=== PATIENT | female | born 1950 | race Caucasian/White ===

== ENCOUNTER 2017-11-03 18:05 | Inpatient (IN) | payer MEDICAID, OTHER ==
--- NOTE | 2017-11-03 18:56 | ED PDOC ---
Arrival/HPI - General Chief Complaint: Abdominal Pain Time Seen by Provider: 11/03/17 18:31 Historian: Patient - History of Present Illness Narrative History of Present Illness (Text): 11/03/17 18:53 75 year old female, whose history includes diabetes and hypertension, presents to the Emergency department complaining of left flank pain that began yesterday. Patient also complains of associated dysuria. Patient states that symptoms feel similar to a previous kidney stone. Patient denies any fever, chills, chest pain, shortness of breath, nausea, vomiting, diarrhea, neck pain, headache, dizziness, or any other complaints. PMD: Dr. Isa Saldana Time/Duration: 24 hours Symptom Onset: Gradual Symptom Course: Unchanged Context: Home Past Medical History - Provider Review Nursing Documentation Reviewed: Yes - Infectious Disease Hx of Infectious Diseases: None - Reproductive Menopause: Yes - Genitourinary/Gynecological Hx Urinary Tract Infection: Yes - Psychiatric Hx Substance Use: No - Anesthesia Hx Anesthesia: No Hx Anesthesia Reactions: No Hx Malignant Hyperthermia: No Family/Social History - Physician Review Nursing Documentation Reviewed: Yes Family/Social History: Unknown Family HX Smoking Status: Never Smoked Hx Alcohol Use: No Hx Substance Use: No Allergies/Home Meds Allergies/Adverse Reactions: Allergies No Known Allergies Allergy (Verified 11/03/17 18:09) Home Medications: Home Meds Medication Instructions Recorded Confirmed No Known Home Med 11/03/17 11/03/17 Review of Systems - Physician Review All systems were reviewed & negative as marked: Yes - Review of Systems Constitutional: absent: Fevers, Night Sweats Respiratory: absent: SOB Cardiovascular: absent: Chest Pain Gastrointestinal: absent: Diarrhea, Nausea, Vomiting Genitourinary Female: Dysuria Musculoskeletal: Other (left flank pain). absent: Neck Pain Neurological: absent: Headache, Dizziness Physical Exam Vital Signs Reviewed: Yes Vital Signs Temp Pulse Resp BP Pulse Ox 11/03/17 20:05 78 18 145/80 98 11/03/17 18:25 97.9 F 86 18 158/71 H 98 Temperature: Afebrile Blood Pressure: Hypertensive Pulse: Regular Respiratory Rate: Normal Appearance: Positive for: Well-Appearing, Non-Toxic, Comfortable Pain Distress: None Mental Status: Positive for: Alert and Oriented X 3 - Systems Exam Head: Present: Atraumatic, Normocephalic Pupils: Present: PERRL Extroacular Muscles: Present: EOMI Conjunctiva: Present: Normal Mouth: Present: Moist Mucous Membranes Neck: Present: Normal Range of Motion Respiratory/Chest: Present: Clear to Auscultation, Good Air Exchange. No: Respiratory Distress, Accessory Muscle Use Cardiovascular: Present: Regular Rate and Rhythm, Normal S1, S2. No: Murmurs Abdomen: Present: Normal Bowel Sounds. No: Tenderness, Distention, Peritoneal Signs Back: Present: Normal Inspection Upper Extremity: Present: Normal Inspection. No: Cyanosis, Edema Lower Extremity: Present: Normal Inspection. No: Edema Neurological: Present: GCS=15, CN II-XII Intact, Speech Normal Skin: Present: Warm, Dry, Normal Color. No: Rashes Psychiatric: Present: Alert, Oriented x 3, Normal Insight, Normal Concentration Medical Decision Making ED Course and Treatment: 11/03/17 19:09 Impression: 75 year old female presents to the Emergency department complaining of left flank pain. Differential Diagnosis included but are not limited to: kidney stone Plan: -- CT scan of abdomen and pelvis -- Blood culture, urine culture -- Urinalysis -- Labs -- Toradol, Morphine, Zofran, Sodium Chloride IV fluids -- Reassess and disposition Progress Notes: 11/03/17 20:50 Discussed case in detail with patient and family. Thus far, labs indicate possible pyelonephritis so IV antibiotics have been ordered. Still pending CT. 11/03/17 22:34 CT of abdomen/pelvis reviewed by radiologist, shows: IMPRESSION: 1. LEFT hydroureteronephrosis without CT evidence of obstructing calculus. DDX: obstructing radiolucent stone, recently passed ureteral calculus, ureteral stricture, infection, obstructing ureteral mass. Clinical correlation and follow up are recommended. 2. Incidental/non-acute findings are described above. - Lab Interpretations Lab Results: 11/03/17 19:45 11/03/17 19:45 Lab Results 11/03/17 20:10: Urine Color Yellow, Urine Appearance Sl cloudy, Urine pH 7.5, Ur Specific [place] 1.020, Urine Protein 100 H, Urine Glucose (UA) Negative, Urine Ketones Trace H, Urine Blood Moderate H, Urine Nitrate Positive H, Urine Bilirubin Negative, Urine Urobilinogen 1.0 H, Ur Leukocyte Esterase Moderate H, Urine RBC Tntc, Urine WBC Tntc, Ur Epithelial Cells 10 - 12, Urine Bacteria Many 11/03/17 19:45: Sodium 139, Chloride 103, Potassium 3.4 L, Carbon Dioxide 25, Anion Gap 14, BUN 22 H, Creatinine 0.7, Est GFR ( Amer) > 60, Est GFR ( Non-Af Amer) > 60, Random Glucose 145 H, Calcium 9.0, Total Bilirubin 0.9, AST 23, ALT 30, Alkaline Phosphatase 70, Total Protein 6.7, Albumin 3.6, Globulin 3.2, Albumin/Globulin Ratio 1.1 11/03/17 19:45: pO2 143 H, VBG pH 7.51 H, VBG pCO2 35.0 L, VBG HCO3 27.9, VBG Total CO2 29.0 H, VBG O2 Sat (Calc) 99.5 H, VBG Base Excess 4.9 H, VBG Potassium 3.2 L, Sodium 138.0, Chloride 105.0, Glucose 148 H, Lactate 1.3, FiO2 21.0, Venous Blood Potassium 3.2 L 11/03/17 19:45: PT 14.9 H, INR 1.30 H 11/03/17 19:45: WBC 13.9 H, RBC 3.55, Hgb 11.1 L, Hct 31.9 L, MCV 89.9, MCH 31.3 , MCHC 34.8, RDW 12.9, Plt Count 103 L, MPV 8.9, Gran % 91.0 H, Lymph % (Auto) 5.2 L, [place] % (Auto) 3.7, Eos % (Auto) 0.0 L, Baso % (Auto) 0.1, Gran # 12.64 H , Lymph # (Auto) 0.7 L, [place] # (Auto) 0.5, Eos # (Auto) 0.0, Baso # (Auto) 0.01 , Neutrophils % (Manual) 94 H, Band Neutrophils % 1, Lymphocytes % (Manual) 2 L , Atypical Lymphs % 3 H, Monocytes % (Manual) 0 L, Platelet Evaluation Low - RAD Interpretation Radiology Orders: 11/03/17 19:04 ABD & PELVIS W/O PO OR IV 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[employer]: Radiologist - Medication Orders Current Medication Orders: Sodium Chloride (Sodium Chloride 0.9%) 1,000 mls @ 100 mls/hr IV .Q10H GONZALEZ Last Admin: 11/03/17 20:04 Dose: 100 mls/hr eMAR Start Stop Document 11/03/17 20:04 SF (Rec: 11/03/17 20:04 SF [email or web address] Intravenous Solution Start Date 11/03/17 Start Time 20:04 Discontinued Medications Ceftriaxone Sodium (Rocephin 1 Gram Ivpb) 1 gm in 100 mls @ 200 mls/hr IVPB STAT STA PRN Reason: Protocol Stop: 11/03/17 21:08 Last Admin: 11/03/17 21:37 Dose: 200 mls/hr eMAR Start Stop Document 11/03/17 21:37 AD (Rec: 11/03/17 21:38 AD [email or web address] Intravenous Solution Start Date 11/03/17 Start Time 21:38 Sodium Chloride (Sodium Chloride 0.9%) 1,000 mls @ 999 mls/hr IV .Q1H1M STA Stop: 11/03/17 21:39 Last Admin: 11/03/17 21:38 Dose: 999 mls/hr eMAR Start Stop Document 11/03/17 21:38 AD (Rec: 11/03/17 21:38 AD [email or web address]) Intravenous Solution Start Date 11/03/17 Start Time 21:38 Ketorolac Tromethamine (Toradol) 15 mg IVP STAT STA Stop: 11/03/17 19:03 Last Admin: 11/03/17 20:03 Dose: 15 mg MAR Pain Assessment Document 11/03/17 20:03 SF (Rec: 11/03/17 20:04 SF [email or web address] Pain Reassessment Is this a pain reassessment? Yes Sleep Is patient sleeping during reassessment? No Pain Scale Used Pain Scale Used Numeric IVP Administration Document 11/03/17 20:03 SF (Rec: 11/03/17 20:04 SF [email or web address] Charges for Administration # of IVP Administrations 1 Morphine Sulfate (Morphine) 4 mg IVP STAT STA Stop: 11/03/17 19:03 Last Admin: 11/03/17 20:03 Dose: 4 mg MAR Pain Assessment Document 11/03/17 20:03 SF (Rec: 11/03/17 20:03 SF [email or web address] Pain Reassessment Is this a pain reassessment? Yes Sleep Is patient sleeping during reassessment? 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 - Scribe Statement The provider has reviewed the documentation as recorded by the Scribsuzy Lopez Provider Scribe Attestation: All medical record entries made by the Scribe were at my direction and personally dictated by me. I have reviewed the chart and agree that the record accurately reflects my personal performance of the history, physical exam, medical decision making, and the department course for this patient. I have also personally directed, reviewed, and agree with the discharge instructions and disposition. Disposition/Present on Arrival - Present on Arrival Any Indicators Present on Arrival: No History of DVT/PE: No History of Uncontrolled Diabetes: No Urinary Catheter: No History of Decub. Ulcer: No History Surgical Site Infection Following: None - Disposition Have Diagnosis and Disposition been Completed?: Yes Diagnosis: Pyelonephritis, Hydronephrosis Disposition: HOSPITALIZED Disposition Time: 23:03 Patient Plan: Admission Condition: GOOD Referrals: Isa Saldana MD [Primary Care Provider] - Follow up with primary Forms: [employer] (Azeri)
[2017-11-03] MEDS ORDERED: Morphine 4 mg/ml ISec IVP STA (19:02)
[2017-11-03] MEDS: Sodium Chloride 0.9% 1,000 ML IV SCH (20:04)
[2017-11-03 20:15] LABS: BASO # 0.01 K/mm3 (0.0-2.0); BASO % 0.1 % (0.0-3.0); GRAN # 12.64 (1.4-6.5); HEMOGLOBIN 11.1 g/dL (12.0-16.0); LYMPH # 0.7 (1.2-3.4); LYMPH % 5.2 % (22.0-35.0); MEAN CELL VOLUME 89.9 fl (80.0-105.0); MEAN CORPUSCULAR HEMOGLOBIN 31.3 pg (25.0-35.0); MEAN CORPUSCULAR HGB CONC 34.8 g/dl (31.0-37.0); MEAN PLATELET VOLUME 8.9 fl (7.0-11.0); MONO # 0.5 (0.1-0.6); MONO % 3.7 % (1.0-6.0); PLATELET COUNT 103 10^3/uL (120.0-450.0); RBC 3.55 10^6/uL (3.5-6.1); RED CELL DISTRIBUTION WIDTH 12.9 % (11.5-14.5); WHITE BLOOD COUNT 13.9 10^3/ul (4.5-11.0)
[2017-11-03 20:16] LABS: VENOUS BLOOD GAS BASE EXCESS 4.9 mmol/L (0.0-2.0); VENOUS BLOOD GAS PO2 143 mm/Hg (30-55); VENOUS BLOOD PH 7.51 (7.32-7.43)
[2017-11-03 20:28] LABS: INR 1.3 (0.93-1.08); PROTHROMBIN TIME 14.9 SECONDS (9.4-12.5)
[2017-11-03 20:31] LABS: ALB/GLOB RATIO 1.1 (1.1-1.8); ALBUMIN 3.6 g/dL (3.0-4.8); ALT/SGPT 30 U/L (7-56); AST/SGOT 23 U/L (14-36); BLOOD UREA NITROGEN 22 mg/dL (7-21); GFR AFRICAN-AMERICAN > 60; GFR NON-AFRICAN AMERICAN > 60
[2017-11-03 20:31] LABS: PH,URINE 7.5 (4.7-8.0); URINE BILIRUBIN NEGATIVE (NEGATIVE); URINE BLOOD MODERATE (NEGATIVE); URINE GLUCOSE (UA) NEGATIVE (NEGATIVE); URINE LEUKOCYTE ESTERASE MODERATE Leu/uL (NEGATIVE); URINE PROTEIN 100 mg/dL (<30 mg/dL)
[2017-11-03 20:33] LABS: URINE APPEARANCE SL CLOUDY (CLEAR); URINE COLOR YELLOW (YELLOW)
[2017-11-03] MEDS ORDERED: Sodium Chloride 0.9% 1,000 ML IV STA (20:39)
[2017-11-03] MEDS ORDERED: cefTRIAXone 1 gm 1 GM/100 ML BAG IVPB STA (20:39)
[2017-11-03 20:42] LABS: URINE BACTERIA MANY (NEG); URINE RBC TNTC /hpf (0-2); URINE WBC TNTC /hpf (0-6)
[2017-11-03 21:02] LABS: ATYPICAL LYMPHOCYTE 3 % (0.0-0.0); BAND 1 % (0-2); LYMPHOCYTE 2 % (22.0-35.0); NEUTROPHIL 94 % (50.0-70.0); PLATELET ESTIMATE LOW (NORMAL)
[2017-11-03 21:04] LABS: MONOCYTE 0 % (1.0-6.0)
--- NOTE | 2017-11-03 22:31 | CT ---
EXAM: CT Abdomen and Pelvis Without Intravenous Contrast CLINICAL HISTORY: 67 years old, female; Pain; Abdominal pain; Flank; Left; Additional info: Left flank pain TECHNIQUE: Axial computed tomography images of the abdomen and pelvis without intravenous contrast. All CT scans at this facility use one or more dose reduction techniques, viz.: automated exposure control; ma/kV adjustment per patient size (including targeted exams where dose is matched to indication; i.e. head); or iterative reconstruction technique. Coronal and sagittal reformatted images were created and reviewed. COMPARISON: No relevant prior studies available. FINDINGS: Limitations: Lack of intravenous contrast. Motion artifact - mild. Lower thorax: No acute findings. ABDOMEN: Liver: Fatty infiltration. Gallbladder and bile ducts: No calcified stones. No ductal dilation. Pancreas: Unremarkable. No ductal dilation. Spleen: No splenomegaly. Adrenals: No mass. Kidneys and ureters: Mild stranding about LEFT kidney. Probable RIGHT renal cyst. 1.2 cm calculus within LEFT kidney. Mild pelvocaliectasis of LEFT kidney. Mildly dilated LEFT ureter. Mild stranding about LEFT ureter. Stomach and bowel: Scattered diverticula within colon. No associated inflammatory stranding. No definite mural thickening. No obstruction. Appendix: Normal caliber. No inflammation. PELVIS: Bladder: Unremarkable. No stones. Reproductive: Hysterectomy. ABDOMEN and PELVIS: Intraperitoneal space: No significant fluid collection. No free air. Bones/joints: Mild degenerative changes of thoracic spine. No acute fracture. Soft tissues: Tiny umbilical hernia containing fat. Vasculature: Mild atherosclerotic disease. No aneurysm. Lymph nodes: No pathologically enlarged lymph nodes. IMPRESSION: 1. LEFT hydroureteronephrosis without CT evidence of obstructing calculus. DDX: obstructing radiolucent stone, recently passed ureteral calculus, ureteral stricture, infection, obstructing ureteral mass. Clinical correlation and follow up are recommended. 2. Incidental/non-acute findings are described above.
--- NOTE | 2017-11-04 01:30 | CP.PCM.HP ---
<Adan Dunbar - Last Filed: 11/06/17 07:15> History of Present Illness - History of Present Illness History of Present Illness: Nicole Dunbar PGY-1 H&P CC: Left flank pain HPI: Patient is a 67 year old female with past medical history significant for HTN, DM2 and previous UTI who presents to ED by private vehicle complaining of left sided flank pain, nausea, vomiting and dysuria for the past 2 days. Patient states that her symptoms feel similar to previous issues with kidney stones. Patient indicates 2 other episodes similar to her presenting symptoms, most recently in 08/2017. Patient denies alleviating factors. Patient indicates aggravating factors of her symptoms include movement and positional changes. Patient denies hematuria, mucous in her urine. Patient denies noticing any passage of stone over the past few days. Patient denies chest pain, shortness of breath, nausea, vomiting, diarrhea, headache, dizziness, abdominal pain. 12 point ROS otherwise mentioned in HPI is benign. PMH: HTN, DM2 PSH: Denies SocHx: Denies Tobacco, ETOH, ID All: NKDA MEDS: -Lisinopril 5mg -Norvasc 5mg -Metformin 500mg BID PMD: Dr. Isa Saldana Present on Admission - Present on Admission Any Indicators Present on Admission: No Review of Systems - Review of Systems All systems: reviewed and no additional remarkable complaints except (as mentioned in HPI) Past Patient History - Infectious Disease Hx of Infectious Diseases: None - Past Social History Smoking Status: Never Smoked Alcohol: None Drugs: Denies - GENITOURINARY/GYNECOLOGICAL Hx Urinary Tract Infection: Yes - PSYCHIATRIC Hx Substance Use: No - SURGICAL HISTORY Hx Surgeries: No - ANESTHESIA Hx Anesthesia: No Hx Anesthesia Reactions: No Hx Malignant Hyperthermia: No Meds Allergies/Adverse Reactions: Allergies Allergy/AdvReac Type Severity Reaction Status Date / Time No Known Allergies Allergy Verified 11/03/17 18:09 Physical Exam - Constitutional Appears: Non-toxic - Head Exam Head Exam: ATRAUMATIC, NORMAL INSPECTION, NORMOCEPHALIC - Eye Exam Eye Exam: EOMI, PERRL - ENT Exam ENT Exam: Mucous Membranes Moist, Normal Exam - Respiratory Exam Respiratory Exam: Clear to Auscultation Bilateral, NORMAL BREATHING PATTERN. absent: Rhonchi, Wheezes, Stridor - Cardiovascular Exam Cardiovascular Exam: REGULAR RHYTHM, +S1, +S2. absent: Systolic Murmur - GI/Abdominal Exam GI & Abdominal Exam: Normal Bowel Sounds, Soft. absent: Distended, Firm - Extremities Exam Extremities exam: Positive for: normal inspection, pedal pulses present. Negative for: calf tenderness, pedal edema - Back Exam Back exam: CVA tenderness (L), NORMAL INSPECTION - Neurological Exam Neurological exam: Alert, CN II-XII Intact, Normal Gait, Oriented x3 - Psychiatric Exam Psychiatric exam: Normal Affect, Normal Mood - Skin Skin Exam: Dry, Normal Color Results - Vital Signs Recent Vital Signs: Last Vital Signs Temp 97.9 F 11/03/17 18:25 Pulse 78 11/03/17 20:05 Resp 18 11/03/17 20:05 BP 145/80 11/03/17 20:05 Pulse Ox 98 11/03/17 20:05 - Labs Result Diagrams: 11/06/17 06:12 11/06/17 06:12 Labs: Laboratory Results - last 24 hr 11/03/17 11/03/17 11/03/17 19:45 19:45 19:45 WBC 13.9 H RBC 3.55 Hgb 11.1 L Hct 31.9 L MCV 89.9 MCH 31.3 MCHC 34.8 RDW 12.9 Plt Count 103 L MPV 8.9 Gran % 91.0 H Lymph % (Auto) 5.2 L [place] % (Auto) 3.7 Eos % (Auto) 0.0 L Baso % (Auto) 0.1 Gran # 12.64 H Lymph # (Auto) 0.7 L [place] # (Auto) 0.5 Eos # (Auto) 0.0 Baso # (Auto) 0.01 Neutrophils % (Manual) 94 H Band Neutrophils % 1 Lymphocytes % (Manual) 2 L Atypical Lymphs % 3 H Monocytes % (Manual) 0 L Platelet Evaluation Low PT 14.9 H INR 1.30 H pO2 143 H VBG pH 7.51 H VBG pCO2 35.0 L VBG HCO3 27.9 VBG Total CO2 29.0 H VBG O2 Sat (Calc) 99.5 H VBG Base Excess 4.9 H VBG Potassium 3.2 L Sodium 138.0 Chloride 105.0 Glucose 148 H Lactate 1.3 FiO2 21.0 Potassium Carbon Dioxide Anion Gap BUN Creatinine Est GFR ( Amer) Est GFR (Non-Af Amer) Random Glucose Calcium Total Bilirubin AST ALT Alkaline Phosphatase Total Protein Albumin Globulin Albumin/Globulin Ratio Venous Blood Potassium 3.2 L Urine Color Urine Appearance Urine pH Ur Specific [place] Urine Protein Urine Glucose (UA) Urine Ketones Urine Blood Urine Nitrate Urine Bilirubin Urine Urobilinogen Ur Leukocyte Esterase Urine RBC Urine WBC Ur Epithelial Cells Urine Bacteria 11/03/17 11/03/17 19:45 20:10 WBC RBC Hgb Hct MCV MCH MCHC RDW Plt Count MPV Gran % Lymph % (Auto) [place] % (Auto) Eos % (Auto) Baso % (Auto) Gran # Lymph # (Auto) [place] # (Auto) Eos # (Auto) Baso # (Auto) Neutrophils % (Manual) Band Neutrophils % Lymphocytes % (Manual) Atypical Lymphs % Monocytes % (Manual) Platelet Evaluation PT INR pO2 VBG pH VBG pCO2 VBG HCO3 VBG Total CO2 VBG O2 Sat (Calc) VBG Base Excess VBG Potassium Sodium 139 Chloride 103 Glucose Lactate FiO2 Potassium 3.4 L Carbon Dioxide 25 Anion Gap 14 BUN 22 H Creatinine 0.7 Est GFR ( Amer) > 60 Est GFR (Non-Af Amer) > 60 Random Glucose 145 H Calcium 9.0 Total Bilirubin 0.9 AST 23 ALT 30 Alkaline Phosphatase 70 Total Protein 6.7 Albumin 3.6 Globulin 3.2 Albumin/Globulin Ratio 1.1 Venous Blood Potassium Urine Color Yellow Urine Appearance Sl cloudy Urine pH 7.5 Ur Specific [place] 1.020 Urine Protein 100 H Urine Glucose (UA) Negative Urine Ketones Trace H Urine Blood Moderate H Urine Nitrate Positive H Urine Bilirubin Negative Urine Urobilinogen 1.0 H Ur Leukocyte Esterase Moderate H Urine RBC Tntc Urine WBC Tntc Ur Epithelial Cells 10 - 12 Urine Bacteria Many Assessment & Plan - Assessment and Plan (Free Text) Assessment: Patient is a 67 year old female with past medical history significant for HTN, DM2 and previous UTI presents with left sided flank pain ongoing for the past 2 days. In ED patient evaluated with abd/pelvis CT showing left sided hydroureteronephrosis without obstructing calculus, UA showing UTI. Patient is given IV abx, urology consulted and admitted for further medical management. Plan: 1. Pyelonephritis Abd/Pelvis CT showing: -Left hydroureteronephrosis without CT evidence of obstructing calculus. DDX: obstructing radiolucent stone, recently passed ureteral calculus, ureteral stricture, infection, obstructing ureteral mass. - Urology consult - NPO, IVF - IV Ceftriaxone - f/u UA culture - Morphine 2mg Q4H 2. DM2 - ISS-Low - Accuchecks 3. Anemia - Iron and TIBC - f/u CBC DVT ppx: Karuna Score 2, SCD GI ppx: Pepcid Case and plan discussed and reviewed with attending - Date & Time Date: 11/04/17 Time: 01:32 <Hari Ramos - Last Filed: 11/07/17 04:11> Results - Vital Signs Recent Vital Signs: Last Vital Signs Temp 99.2 F 11/06/17 16:00 Pulse 90 11/06/17 16:00 Resp 20 11/06/17 16:00 BP 164/90 H 11/06/17 16:00 Pulse Ox 98 11/06/17 16:00 - Labs Result Diagrams: 11/06/17 06:12 11/06/17 06:12 Labs: Laboratory Results - last 24 hr 11/06/17 11/06/17 11/06/17 06:12 06:12 07:28 WBC 4.7 D RBC 3.01 L Hgb 9.3 L Hct 27.2 L MCV 90.4 MCH 30.9 MCHC 34.2 RDW 12.6 Plt Count 118 L MPV 8.8 Gran % 59.9 Lymph % (Auto) 24.9 [place] % (Auto) 13.1 H Eos % (Auto) 1.9 Baso % (Auto) 0.2 Gran # 2.83 Lymph # (Auto) 1.2 [place] # (Auto) 0.6 Eos # (Auto) 0.1 Baso # (Auto) 0.01 Sodium 139 Potassium 3.5 L Chloride 104 Carbon Dioxide 24 Anion Gap 13 BUN 13 Creatinine 0.6 L Est GFR ( Amer) > 60 Est GFR (Non-Af Amer) > 60 POC Glucose (mg/dL) 120 H Random Glucose 121 H Calcium 9.3 Total Bilirubin 0.6 AST 18 ALT 25 Alkaline Phosphatase 64 Total Protein 6.1 Albumin 3.1 Globulin 3.0 Albumin/Globulin Ratio 1.0 L 11/06/17 11/06/17 11/06/17 11:20 15:50 20:59 WBC RBC Hgb Hct MCV MCH MCHC RDW Plt Count MPV Gran % Lymph % (Auto) [place] % (Auto) Eos % (Auto) Baso % (Auto) Gran # Lymph # (Auto) [place] # (Auto) Eos # (Auto) Baso # (Auto) Sodium Potassium Chloride Carbon Dioxide Anion Gap BUN Creatinine Est GFR ( Amer) Est GFR (Non-Af Amer) POC Glucose (mg/dL) 203 H 132 H 115 H Random Glucose Calcium Total Bilirubin AST ALT Alkaline Phosphatase Total Protein Albumin Globulin Albumin/Globulin Ratio
[2017-11-04] MEDS ORDERED: Pantoprazole 20 mg EC Tab PO SCH (06:00)
[2017-11-04 06:07] LABS: BASO # 0.01 K/mm3 (0.0-2.0); BASO % 0.1 % (0.0-3.0); EOS % 0.1 % (1.5-5.0); GRAN # 9.71 (1.4-6.5); GRAN % 88.9 % (50.0-68.0); HEMOGLOBIN 10.3 g/dL (12.0-16.0); LYMPH # 0.8 (1.2-3.4); LYMPH % 7.3 % (22.0-35.0); MEAN CORPUSCULAR HEMOGLOBIN 30.8 pg (25.0-35.0); MEAN CORPUSCULAR HGB CONC 33.9 g/dl (31.0-37.0); MEAN PLATELET VOLUME 8.5 fl (7.0-11.0); MONO # 0.4 (0.1-0.6); MONO % 3.6 % (1.0-6.0); RBC 3.34 10^6/uL (3.5-6.1); RED CELL DISTRIBUTION WIDTH 12.9 % (11.5-14.5); WHITE BLOOD COUNT 10.9 10^3/ul (4.5-11.0)
[2017-11-04 06:14] LABS: INR 1.27 (0.93-1.08); PROTHROMBIN TIME 14.7 SECONDS (9.4-12.5)
[2017-11-04] MEDS: Sodium Chloride 0.9% 1,000 ML IV SCH ×2 (06:14→19:49)
[2017-11-04 06:19] LABS: ALB/GLOB RATIO 1.1 (1.1-1.8); ALBUMIN 3.2 g/dL (3.0-4.8); ALT/SGPT 30 U/L (7-56); AST/SGOT 19 U/L (14-36); BLOOD UREA NITROGEN 19 mg/dL (7-21); CALCIUM 8.5 mg/dL (8.4-10.5); GFR AFRICAN-AMERICAN > 60; GFR NON-AFRICAN AMERICAN > 60
[2017-11-04 07:06] LABS: IRON 15 ug/dL (45-180)
[2017-11-04 07:16] LABS: % IRON SATURATION 5 % (20-55); TOTAL IRON BINDING CAPACITY 280 ug/dL (265-497)
[2017-11-04] MEDS: Insulin Lispro (humaLOG) LOW Coverage SC SCH ×4 (07:54→21:43)
--- NOTE | 2017-11-04 09:28 | PCM.URO ---
Urology Progress Note - Objective Lab Studies: Reviewed (pt for operating room today) Lab Results Last 24 Hours: Laboratory Results - last 24 hr 11/04/17 11/04/17 11/04/17 05:25 05:25 05:25 WBC 10.9 D RBC 3.34 L Hgb 10.3 L Hct 30.4 L MCV 91.0 MCH 30.8 MCHC 33.9 RDW 12.9 Plt Count 94 L MPV 8.5 Gran % 88.9 H Lymph % (Auto) 7.3 L [place] % (Auto) 3.6 Eos % (Auto) 0.1 L Baso % (Auto) 0.1 Gran # 9.71 H Lymph # (Auto) 0.8 L [place] # (Auto) 0.4 Eos # (Auto) 0.0 Baso # (Auto) 0.01 PT 14.7 H INR 1.27 H Sodium 141 Potassium 3.1 L Chloride 106 Carbon Dioxide 25 Anion Gap 13 BUN 19 Creatinine 0.7 Est GFR ( Amer) > 60 Est GFR (Non-Af Amer) > 60 POC Glucose (mg/dL) Random Glucose 145 H Calcium 8.5 Iron TIBC % Saturation Total Bilirubin 0.8 AST 19 ALT 30 Alkaline Phosphatase 68 Total Protein 6.3 Albumin 3.2 Globulin 3.1 Albumin/Globulin Ratio 1.1 11/04/17 11/04/17 05:25 08:14 WBC RBC Hgb Hct MCV MCH MCHC RDW Plt Count MPV Gran % Lymph % (Auto) [place] % (Auto) Eos % (Auto) Baso % (Auto) Gran # Lymph # (Auto) [place] # (Auto) Eos # (Auto) Baso # (Auto) PT INR Sodium Potassium Chloride Carbon Dioxide Anion Gap BUN Creatinine Est GFR ( Amer) Est GFR (Non-Af Amer) POC Glucose (mg/dL) 138 H Random Glucose Calcium Iron 15 L TIBC 280 % Saturation 5 L Total Bilirubin AST ALT Alkaline Phosphatase Total Protein Albumin Globulin Albumin/Globulin Ratio Intake & Output: Intake & Output 11/03/17 11/04/17 11/04/17 18:59 06:59 18:59 Intake Total 0 Output Total 0 Balance 0 Intake: Oral 0 Output: Stool 0 Other: # Voids Urine, Voided 1 Vital Signs: Vital Signs - 24 hr 11/04/17 11/04/17 11/04/17 00:30 01:46 09:04 Temperature 99.6 F 99.9 F H Pulse Rate 88 111 H 110 H Respiratory 20 20 Rate Blood Pressure 140/99 H 135/55 L 137/63 O2 Sat by Pulse 99 Oximetry
--- NOTE | 2017-11-04 10:31 | RAD ---
HISTORY: Pre-Op COMPARISON: No prior. FINDINGS: LUNGS: No active pulmonary disease. PLEURA: No significant pleural effusion identified, no pneumothorax apparent. CARDIOVASCULAR: Normal. OSSEOUS STRUCTURES: No significant abnormalities. VISUALIZED UPPER ABDOMEN: Normal. OTHER FINDINGS: None. IMPRESSION: No active disease.
[2017-11-04] MEDS: cefTRIAXone 1 gm 1 GM/100 ML BAG IVPB SCH (10:55)
[2017-11-04] MEDS ORDERED: Propofol 10 mg/ml Inj (20 ML) ONE (14:37)
[2017-11-04] MEDS ORDERED: Midazolam 2 MG/2 ML VIAL ONE (14:39)
[2017-11-04] MEDS ORDERED: Iohexol 240 (50 ml) ONE (14:42)
[2017-11-04] MEDS ORDERED: Morphine 2 mg/ml ISec IVP PRN ×2 (14:50→14:52)
[2017-11-04] MEDS ORDERED: Lactated Ringer's 1,000 ML IV SCH (15:00)
--- NOTE | 2017-11-04 16:38 | PCM.URO ---
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 make certain she has follow up because she has a stent in place that needs to be removed) Lab Results Last 24 Hours: Laboratory Results - last 24 hr 11/04/17 11/04/17 11/04/17 05:25 05:25 05:25 WBC 10.9 D RBC 3.34 L Hgb 10.3 L Hct 30.4 L MCV 91.0 MCH 30.8 MCHC 33.9 RDW 12.9 Plt Count 94 L MPV 8.5 Gran % 88.9 H Lymph % (Auto) 7.3 L [place] % (Auto) 3.6 Eos % (Auto) 0.1 L Baso % (Auto) 0.1 Gran # 9.71 H Lymph # (Auto) 0.8 L [place] # (Auto) 0.4 Eos # (Auto) 0.0 Baso # (Auto) 0.01 PT 14.7 H INR 1.27 H Sodium 141 Potassium 3.1 L Chloride 106 Carbon Dioxide 25 Anion Gap 13 BUN 19 Creatinine 0.7 Est GFR ( Amer) > 60 Est GFR (Non-Af Amer) > 60 POC Glucose (mg/dL) Random Glucose 145 H Calcium 8.5 Iron TIBC % Saturation Total Bilirubin 0.8 AST 19 ALT 30 Alkaline Phosphatase 68 Total Protein 6.3 Albumin 3.2 Globulin 3.1 Albumin/Globulin Ratio 1.1 11/04/17 11/04/17 11/04/17 05:25 08:14 11:47 WBC RBC Hgb Hct MCV MCH MCHC RDW Plt Count MPV Gran % Lymph % (Auto) [place] % (Auto) Eos % (Auto) Baso % (Auto) Gran # Lymph # (Auto) [place] # (Auto) Eos # (Auto) Baso # (Auto) PT INR Sodium Potassium Chloride Carbon Dioxide Anion Gap BUN Creatinine Est GFR ( Amer) Est GFR (Non-Af Amer) POC Glucose (mg/dL) 138 H 138 H Random Glucose Calcium Iron 15 L TIBC 280 % Saturation 5 L Total Bilirubin AST ALT Alkaline Phosphatase Total Protein Albumin Globulin Albumin/Globulin Ratio Intake & Output: Intake & Output 11/03/17 11/04/17 11/04/17 18:59 06:59 18:59 Intake Total 0 0 Output Total 0 Balance 0 0 Intake: IV 0 Oral 0 0 Output: Stool 0 Other: # Voids Urine, Voided 1 2 # Bowel Movements 0 Vital Signs: Vital Signs - 24 hr 11/04/17 11/04/17 11/04/17 00:30 01:46 09:04 Temperature 99.6 F 99.9 F H Pulse Rate 88 111 H 110 H Respiratory 20 20 Rate Blood Pressure 140/99 H 135/55 L 137/63 O2 Sat by Pulse 99 Oximetry 11/04/17 11/04/17 11/04/17 13:30 15:06 15:21 Temperature 99.6 F 99.6 F 99.6 F Pulse Rate 98 H 96 H 100 H Respiratory 18 17 15 Rate Blood Pressure 132/81 108/58 L 157/77 H O2 Sat by Pulse 99 99 99 Oximetry 11/04/17 11/04/17 11/04/17 15:36 15:51 16:06 Temperature 99.6 F 99.6 F 99.6 F Pulse Rate 100 H 97 H 97 H Respiratory 15 15 15 Rate Blood Pressure 150/87 138/76 138/76 O2 Sat by Pulse 99 99 99 Oximetry
--- NOTE | 2017-11-04 16:53 | RAD ---
PROCEDURE: Fluoroscopy up to 1 hour HISTORY: RETROGRADE PYELOGRAM / STENT INSERTION (LEFT) COMPARISON: TECHNIQUE: Fluoroscopy was provided in the operating room. 60.8 seconds of fluoro time were used. The 15 images submitted FINDINGS: Study shows placement of a left ureteral stent. IMPRESSION: As above
[2017-11-04] MEDS: Morphine 2 mg/ml ISec IVP PRN (22:27)
--- NOTE | 2017-11-04 22:44 | CARD ---
APPROVED REPORT EKG Measurement Heart [id number] <Conclusion> Normal sinus rhythm Nonspecific ST and T wave abnormality Abnormal ECG
[2017-11-05] MEDS: Sodium Chloride 0.9% 1,000 ML IV SCH ×2 (01:20→05:34)
[2017-11-05] MEDS: Morphine 2 mg/ml ISec IVP PRN ×3 (05:35→13:10)
[2017-11-05 07:05] LABS: ALBUMIN 3.1 g/dL (3.0-4.8); ALT/SGPT 26 U/L (7-56); AST/SGOT 16 U/L (14-36); BLOOD UREA NITROGEN 16 mg/dL (7-21); CALCIUM 8.5 mg/dL (8.4-10.5); GFR AFRICAN-AMERICAN > 60; GFR NON-AFRICAN AMERICAN > 60
[2017-11-05] MEDS ORDERED: Potassium Chloride 20 mEq ER Tab PO STA ×2 (07:07)
[2017-11-05 07:43] LABS: BASO # 0.01 K/mm3 (0.0-2.0); BASO % 0.1 % (0.0-3.0); EOS % 0.4 % (1.5-5.0); GRAN # 5.66 (1.4-6.5); GRAN % 75.7 % (50.0-68.0); HEMOGLOBIN 10.2 g/dL (12.0-16.0); LYMPH # 1.1 (1.2-3.4); MEAN CORPUSCULAR HEMOGLOBIN 30.9 pg (25.0-35.0); MEAN CORPUSCULAR HGB CONC 33.2 g/dl (31.0-37.0); MEAN PLATELET VOLUME 9.2 fl (7.0-11.0); MONO # 0.7 (0.1-0.6); MONO % 9.8 % (1.0-6.0); RBC 3.3 10^6/uL (3.5-6.1); RED CELL DISTRIBUTION WIDTH 12.9 % (11.5-14.5); WHITE BLOOD COUNT 7.5 10^3/ul (4.5-11.0)
[2017-11-05] MEDS: cefTRIAXone 1 gm 1 GM/100 ML BAG IVPB SCH (09:13)
[2017-11-05] MEDS: Insulin Lispro (humaLOG) LOW Coverage SC SCH ×4 (09:14→22:08)
--- NOTE | 2017-11-05 14:15 | CP.PCM.PN ---
<Jose Manuel Owens - Last Filed: 11/05/17 14:11> Subjective - Date & Time of Evaluation Date of Evaluation: 11/05/17 Time of Evaluation: 14:11 - Subjective Subjective: Medicine Progress Note: Patient seen and assessed at bedside. Informatics Specialist services were used for communication as patient speaks predominately Portuguese. No acute events were noted overnight by patient or nursing staff. Patient reports that her flank pain has resolved but she continues to endorse suprapubic pain. She also endorses that after her cystoscopy yesterday she noticed a few drops of bright red blood in her urine that has since subsided. She denies any fever, chills, headache, chest pain, palpitations, SOB, cough, wheezing, abdominal pain, N/V/D/ C, pyuria, urethral discharge, skin changes or any numbness/tingling/weakness of any extremity. Objective - Vital Signs/Intake and Output Vital Signs (last 24 hours): Temp Pulse Resp BP Pulse Ox 101.4 F H 104 H 20 120/63 95 11/05/17 08:34 11/05/17 08:34 11/05/17 08:34 11/05/17 08:34 11/05/17 08:34 Intake and Output: 11/05/17 11/05/17 06:59 18:59 Intake Total 300 Balance 300 - Medications Medications: Current Medications Famotidine (Pepcid) 20 mg IVP DAILY [facility] Last Admin: 11/05/17 09:14 Dose: 20 mg Sodium Chloride (Sodium Chloride 0.9%) 1,000 mls @ 100 mls/hr IV .Q10H [facility] Last Admin: 11/05/17 05:34 Dose: 100 mls/hr Ceftriaxone Sodium (Rocephin 1 Gram Ivpb) 1 gm in 100 mls @ 100 mls/hr IVPB DAILY [facility] PRN Reason: Protocol Last Admin: 11/05/17 09:13 Dose: 100 mls/hr Insulin Human Lispro (Humalog Low) 0 units SC ACHS [facility] PRN Reason: Protocol Last Admin: 11/05/17 13:23 Dose: 1 units Morphine Sulfate (Morphine) 2 mg IVP Q15M PRN PRN Reason: Pain, moderate (4-7) Morphine Sulfate (Morphine) 2 mg IVP Q3 PRN PRN Reason: Pain, severe (8-10) Last Admin: 11/05/17 13:10 Dose: 2 mg Ondansetron HCl (Zofran Inj) 4 mg IVP Q4 PRN PRN Reason: Nausea/Vomiting Ondansetron HCl (Zofran Inj) 4 mg IVP ONCE PRN PRN Reason: Nausea/Vomiting Pneumococcal Polyvalent Vaccine (Pneumovax 23 Vaccine) 0.5 ml IM .ONCE ONE Stop: 11/06/17 10:01 - Labs Labs: 11/05/17 05:44 11/05/17 05:44 PT 14.7 SECONDS (9.4-12.5) H 11/04/17 05:25 INR 1.27 (0.93-1.08) H 11/04/17 05:25 - Constitutional Appears: Non-toxic, No Acute Distress - Head Exam Head Exam: ATRAUMATIC, NORMOCEPHALIC - Eye Exam Eye Exam: EOMI, Normal appearance, PERRL Pupil Exam: NORMAL ACCOMODATION, PERRL - ENT Exam ENT Exam: Mucous Membranes Moist, Normal Exam - Neck Exam Neck Exam: Full ROM, Normal Inspection. absent: Lymphadenopathy - Respiratory Exam Respiratory Exam: Clear to Ausculation Bilateral, NORMAL BREATHING PATTERN. absent: Accessory Muscle Use, Rales, Rhonchi, Wheezes, Respiratory Distress - Cardiovascular Exam Cardiovascular Exam: REGULAR RHYTHM, RRR, +S1, +S2. absent: Bradycardia, Tachycardia - GI/Abdominal Exam GI & Abdominal Exam: Soft, Tenderness (TTP to suprapubic region), Normal Bowel Sounds. absent: Distended, Firm, Guarding, Rigid, Rebound - Extremities Exam Extremities Exam: Full ROM, Normal Capillary Refill, Normal Inspection. absent : Calf Tenderness, Joint Swelling, Pedal Edema, Tenderness - Back Exam Back Exam: NORMAL INSPECTION. absent: CVA tenderness (L), CVA tenderness (R) - Neurological Exam Neurological Exam: Alert, Awake, CN II-XII Intact, Normal Gait, Oriented x3 - Psychiatric Exam Psychiatric exam: Normal Affect, Normal Mood - Skin Skin Exam: Dry, Intact, Normal Color, Warm Assessment and Plan - Assessment and Plan (Free Text) Assessment: 67 year old female with a past medical history significant for HTN, DM2 and previous UTI who presented with left sided flank pain ongoing for two days. She was found to have UTI on UA and left hydroureteronephrosis with no signs of mechanical obstruction on CT Abdomen/Pelvis. Patient had left ureteral stent placed by Urology. Urine and blood cultures grew gram negative rods with sensitivity reports pending. She is currently being treated empirically with IV Rocephin (Day 3). Plan: 1. Gram Negative Cystitis with associated Gram Negative [place] Bacteremia -CT Abdomen/Pelvis showed left hydroureteronephrosis without evidence of obstructing calculus -UA showed postive urine nitrates, moderate LE, WBC TNTC and many bacteria -Urine and blood cultures preliminarily grew gram negative rods with sensitivity reports pending -S/P placement of left ureteral stent by Urology -Afebrile and without leukocytosis, tachycardia, tachypnea or lactic acidosis -Continue IV Rocephin (Day 3) -Continue Normal Saline at 100mls/hr -Continue Morphine 2mg IVP Q3H PRN for pain control -Continue Zofran 4mg IVP Q4H PRN for N/V -Urology consulted, all recommendations appreciated 2. History of DM2 -SSI-Low and Accuchecks ACHS -Carbohydrate Consistent Diet 3. Hypokalemia -Potassium at 3.2 -Replenished with PO KCl -Continue to monitor with daily CMP's 4. Asymptomatic Iron Deficiency Anemia -Iron and Hemoglobin/Hematocrit both low -Will recommend iron supplementation after bacterial infection resolves GI Prophylaxis: Pepcid DVT Prophylaxis: SCD's Patient seen and case discussed with attending, Dr. Will. <Avery Will - Last Filed: 11/05/17 15:55> Objective - Vital Signs/Intake and Output Vital Signs (last 24 hours): Temp Pulse Resp BP Pulse Ox 101.4 F H 104 H 20 120/63 95 11/05/17 08:34 11/05/17 08:34 11/05/17 08:34 11/05/17 08:34 11/05/17 08:34 Intake and Output: 11/05/17 11/05/17 06:59 18:59 Intake Total 300 820 Balance 300 820 - Medications Medications: Current Medications Famotidine (Pepcid) 20 mg IVP DAILY [facility] Last Admin: 11/05/17 09:14 Dose: 20 mg Sodium Chloride (Sodium Chloride 0.9%) 1,000 mls @ 100 mls/hr IV .Q10H [facility] Last Admin: 11/05/17 05:34 Dose: 100 mls/hr Ceftriaxone Sodium (Rocephin 1 Gram Ivpb) 1 gm in 100 mls @ 100 mls/hr IVPB DAILY [facility] PRN Reason: Protocol Last Admin: 11/05/17 09:13 Dose: 100 mls/hr Insulin Human Lispro (Humalog Low) 0 units SC ACHS [facility] PRN Reason: Protocol Last Admin: 11/05/17 13:23 Dose: 1 units Morphine Sulfate (Morphine) 2 mg IVP Q15M PRN PRN Reason: Pain, moderate (4-7) Morphine Sulfate (Morphine) 2 mg IVP Q3 PRN PRN Reason: Pain, severe (8-10) Last Admin: 11/05/17 13:10 Dose: 2 mg Ondansetron HCl (Zofran Inj) 4 mg IVP Q4 PRN PRN Reason: Nausea/Vomiting Ondansetron HCl (Zofran Inj) 4 mg IVP ONCE PRN PRN Reason: Nausea/Vomiting Pneumococcal Polyvalent Vaccine (Pneumovax 23 Vaccine) 0.5 ml IM .ONCE ONE Stop: 11/06/17 10:01 - Labs Labs: 11/05/17 05:44 11/05/17 05:44 PT 14.7 SECONDS (9.4-12.5) H 11/04/17 05:25 INR 1.27 (0.93-1.08) H 11/04/17 05:25 Attending/Attestation - Attestation I have personally seen and examined this patient.: Yes I have fully participated in the care of the patient.: Yes I have reviewed all pertinent clinical information, including history, physical exam and plan: Yes Notes (Text): 11/05/17 15:53 Medical record note made by the resident after discussion with my direction and input after the patient was personally seen and examined by me. I have reviewed the chart and agree that the record accurately reflects by personal performance of the history, physical exam, data review, and medical decision-making, in the course for the patient. I have also personally directed the plan of care. 67 year old female with a past medical history significant for HTN, DM2 and previous UTI who presented with left sided flank pain ongoing for two days. She was found to have UTI and left hydroureteronephrosis with no signs of mechanical obstruction on CT Abdomen/Pelvis. Patient had left ureteral stent placed by Urology yesterday. Urine and blood cultures grew gram negative rods with sensitivity reports pending.Patient is afebrile.We will follow up sensitivity report.Patient will need 2 weeks of antibiotics for gram negative bacteremia.
[2017-11-05] MEDS ORDERED: Morphine 2 mg/ml ISec IVP SCH (15:00)
--- NOTE | 2017-11-05 16:42 | PCM.URO ---
Urology Progress Note - Objective Lab Studies: Reviewed (plans: kub and antibiotics and out patient management) Lab Results Last 24 Hours: Laboratory Results - last 24 hr 11/04/17 11/04/17 11/05/17 16:56 21:37 05:44 WBC 7.5 D RBC 3.30 L Hgb 10.2 L Hct 30.7 L MCV 93.0 MCH 30.9 MCHC 33.2 RDW 12.9 Plt Count 110 L MPV 9.2 Gran % 75.7 H Lymph % (Auto) 14.0 L [place] % (Auto) 9.8 H Eos % (Auto) 0.4 L Baso % (Auto) 0.1 Gran # 5.66 Lymph # (Auto) 1.1 L [place] # (Auto) 0.7 H Eos # (Auto) 0.0 Baso # (Auto) 0.01 Sodium Potassium Chloride Carbon Dioxide Anion Gap BUN Creatinine Est GFR ( Amer) Est GFR (Non-Af Amer) POC Glucose (mg/dL) 111 H 111 H Random Glucose Calcium Total Bilirubin AST ALT Alkaline Phosphatase Total Protein Albumin Globulin Albumin/Globulin Ratio 11/05/17 11/05/17 11/05/17 05:44 07:15 11:37 WBC RBC Hgb Hct MCV MCH MCHC RDW Plt Count MPV Gran % Lymph % (Auto) [place] % (Auto) Eos % (Auto) Baso % (Auto) Gran # Lymph # (Auto) [place] # (Auto) Eos # (Auto) Baso # (Auto) Sodium 142 Potassium 3.2 L Chloride 108 H Carbon Dioxide 24 Anion Gap 13 BUN 16 Creatinine 0.7 Est GFR ( Amer) > 60 Est GFR (Non-Af Amer) > 60 POC Glucose (mg/dL) 115 H 166 H Random Glucose 117 H Calcium 8.5 Total Bilirubin 0.7 AST 16 ALT 26 Alkaline Phosphatase 74 Total Protein 6.2 Albumin 3.1 Globulin 3.0 Albumin/Globulin Ratio 1.0 L 11/05/17 16:27 WBC RBC Hgb Hct MCV MCH MCHC RDW Plt Count MPV Gran % Lymph % (Auto) [place] % (Auto) Eos % (Auto) Baso % (Auto) Gran # Lymph # (Auto) [place] # (Auto) Eos # (Auto) Baso # (Auto) Sodium Potassium Chloride Carbon Dioxide Anion Gap BUN Creatinine Est GFR ( Amer) Est GFR (Non-Af Amer) POC Glucose (mg/dL) 96 Random Glucose Calcium Total Bilirubin AST ALT Alkaline Phosphatase Total Protein Albumin Globulin Albumin/Globulin Ratio Intake & Output: Intake & Output 11/04/17 11/05/17 11/05/17 18:59 06:59 18:59 Intake Total 0 300 820 Balance 0 300 820 Intake: IV 0 Oral 0 300 820 Other: # Voids Urine, Voided 2 1 3 # Bowel Movements 0 0 0 Vital Signs: Vital Signs - 24 hr 11/05/17 08:34 Temperature 101.4 F H Pulse Rate 104 H Respiratory 20 Rate Blood Pressure 120/63 O2 Sat by Pulse 95 Oximetry
[2017-11-06 06:18] LABS: BASO # 0.01 K/mm3 (0.0-2.0); BASO % 0.2 % (0.0-3.0); EOS # 0.1 (0.0-0.7); EOS % 1.9 % (1.5-5.0); GRAN # 2.83 (1.4-6.5); GRAN % 59.9 % (50.0-68.0); HEMOGLOBIN 9.3 g/dL (12.0-16.0); LYMPH # 1.2 (1.2-3.4); LYMPH % 24.9 % (22.0-35.0); MEAN CELL VOLUME 90.4 fl (80.0-105.0); MEAN CORPUSCULAR HEMOGLOBIN 30.9 pg (25.0-35.0); MEAN CORPUSCULAR HGB CONC 34.2 g/dl (31.0-37.0); MEAN PLATELET VOLUME 8.8 fl (7.0-11.0); MONO # 0.6 (0.1-0.6); MONO % 13.1 % (1.0-6.0); RBC 3.01 10^6/uL (3.5-6.1); RED CELL DISTRIBUTION WIDTH 12.6 % (11.5-14.5); WHITE BLOOD COUNT 4.7 10^3/ul (4.5-11.0)
[2017-11-06 06:57] LABS: ALBUMIN 3.1 g/dL (3.0-4.8); ALT/SGPT 25 U/L (7-56); AST/SGOT 18 U/L (14-36); BLOOD UREA NITROGEN 13 mg/dL (7-21); CALCIUM 9.3 mg/dL (8.4-10.5); GFR AFRICAN-AMERICAN > 60; GFR NON-AFRICAN AMERICAN > 60
[2017-11-06] MEDS ORDERED: Potassium Chloride 20 mEq ER Tab PO STA (08:08)
[2017-11-06] MEDS: Insulin Lispro (humaLOG) LOW Coverage SC SCH ×4 (08:27→21:40)
--- NOTE | 2017-11-06 08:56 | PN ---
DATE: 11/05/2017 See the history and physical, consultation, and the operative note. Yesterday placed a stent for severe hydronephrosis. The urology plan is at this point we will get a followup KUB, antibiotics treatment, and then outpatient management. Nothing further at this point to be done while the patient is here. Explained this to the patient in detail. I hand wrote her instructions. I explained to the patient prior to the procedure as well. Jose Matt MD
[2017-11-06] MEDS: cefTRIAXone 1 gm 1 GM/100 ML BAG IVPB SCH (09:15)
[2017-11-06] MEDS ORDERED: Pneumococcal 23-Valent Vaccine IM ONE (10:00)
[2017-11-06] MEDS ORDERED: Influenza Vaccine 60 mcg/0.5 mL SYR (4YR UP) IM ONE (10:00)
--- NOTE | 2017-11-06 12:37 | CP.PCM.PN ---
<Jose Manuel Owens - Last Filed: 11/06/17 12:33> Subjective - Date & Time of Evaluation Date of Evaluation: 11/06/17 Time of Evaluation: 12:33 - Subjective Subjective: Medicine Progress Note: Patient seen and assessed at bedside. Thermometer Tester services were used for communication as patient speaks predominately Swedish. No acute events were noted overnight by patient or nursing staff. Patient continues to report suprapubic pain that she rates as a 6-8/10 on pain scale. She reports moderate relief with pain medication. She denies any chills, headache, chest pain, palpitations, SOB, cough, wheezing, N/V/D/C, pyuria, urethral discharge, skin changes or any numbness/tingling/weakness of any extremity. Objective - Vital Signs/Intake and Output Vital Signs (last 24 hours): Temp Pulse Resp BP Pulse Ox 99.1 F 100 H 18 160/91 H 97 11/06/17 08:09 11/06/17 08:09 11/06/17 08:09 11/06/17 08:09 11/06/17 08:09 Intake and Output: 11/06/17 11/06/17 06:59 18:59 Intake Total 720 Balance 720 - Medications Medications: Current Medications Famotidine (Pepcid) 20 mg PO HS [facility] Sodium Chloride (Sodium Chloride 0.9%) 1,000 mls @ 100 mls/hr IV .Q10H [facility] Last Admin: 11/05/17 05:34 Dose: 100 mls/hr Meropenem 500 mg/ Sodium (Chloride) 50 mls @ 100 mls/hr IVPB Q8 [facility] PRN Reason: Protocol Stop: 11/06/17 22:29 Insulin Human Lispro (Humalog Low) 0 units SC ACHS [facility] PRN Reason: Protocol Last Admin: 11/06/17 11:58 Dose: 2 units Morphine Sulfate (Morphine) 2 mg IVP Q3 PRN PRN Reason: Pain, severe (8-10) Last Admin: 11/05/17 13:10 Dose: 2 mg Ondansetron HCl (Zofran Inj) 4 mg IVP Q4 PRN PRN Reason: Nausea/Vomiting - Labs Labs: 11/06/17 06:12 11/06/17 06:12 PT 14.7 SECONDS (9.4-12.5) H 11/04/17 05:25 INR 1.27 (0.93-1.08) H 11/04/17 05:25 - Constitutional Appears: Non-toxic, No Acute Distress - Head Exam Head Exam: ATRAUMATIC, NORMOCEPHALIC - Eye Exam Eye Exam: EOMI, Normal appearance, PERRL Pupil Exam: NORMAL ACCOMODATION, PERRL - ENT Exam ENT Exam: Mucous Membranes Moist, Normal Exam - Neck Exam Neck Exam: Full ROM, Normal Inspection. absent: Lymphadenopathy - Respiratory Exam Respiratory Exam: Clear to Ausculation Bilateral, NORMAL BREATHING PATTERN. absent: Accessory Muscle Use, Chest Wall Tenderness, Decreased Breath Sounds, Prolonged Expiratory Phase, Rales, Rhonchi, Wheezes, Respiratory Distress, Stridor - Cardiovascular Exam Cardiovascular Exam: REGULAR RHYTHM, RRR, +S1, +S2. absent: Bradycardia, Tachycardia, Clicks, Diastolic murmur, Gallop, Irregular Rhythm, JVD, Rubs, +S4 , Murmur - GI/Abdominal Exam GI & Abdominal Exam: Soft, Tenderness (Suprapubic TTP), Normal Bowel Sounds. absent: Distended, Firm, Guarding, Rigid, Rebound - Extremities Exam Extremities Exam: Full ROM, Normal Capillary Refill, Normal Inspection. absent : Calf Tenderness, Joint Swelling, Pedal Edema, Tenderness - Back Exam Back Exam: NORMAL INSPECTION. absent: CVA tenderness (L), CVA tenderness (R) - Neurological Exam Neurological Exam: Alert, Awake, CN II-XII Intact, Normal Gait, Oriented x3 - Psychiatric Exam Psychiatric exam: Normal Affect, Normal Mood - Skin Skin Exam: Dry, Intact, Normal Color, Warm Assessment and Plan - Assessment and Plan (Free Text) Assessment: 67 year old female with a past medical history significant for HTN, DM2 and previous UTI who presented with left sided flank pain ongoing for two days. She was found to have UTI on UA and left hydroureteronephrosis with no signs of mechanical obstruction on CT Abdomen/Pelvis. Patient had left ureteral stent placed by Urology. Urine and blood cultures grew ESBL positive E. Coli. Contact precautions were put in place. Patient was switched from IV Rocephin to IV Merrem with ID consulted. Repeat blood cultures have been negative for 24 hours. Plan: 1. ESBL Positive E. Coli Cystitis with associated Bacteremia -CT Abdomen/Pelvis showed left hydroureteronephrosis without evidence of obstructing calculus -UA showed postive urine nitrates, moderate LE, WBC TNTC and many bacteria -S/P placement of left ureteral stent by Urology -Repeat blood cultures negative for 24 hours -Tachycardia noted to 100 but afebrile for 24 hours and without leukocytosis, tachypnea or lactic acidosis -Discontinued IV Rocephin -IV Merrem 500mg Q8 (Day 1) -Continue Normal Saline at 100mls/hr -Continue Morphine 2mg IVP Q3H PRN for pain control -Continue Zofran 4mg IVP Q4H PRN for N/V -Maintain contact precautions for ESBL -Patient to follow up with Urology as an oupatient for stent removal -Urology and ID consulted, all recommendations appreciated 2. History of DM2 -SSI-Low and Accuchecks ACHS -Carbohydrate Consistent Diet 3. Hypokalemia -Potassium at 3.5 -Replenished with PO KCl -Continue to monitor with daily CMP's 4. Asymptomatic Iron Deficiency Anemia -Iron and Hemoglobin/Hematocrit both low -Will recommend iron supplementation after bacterial infection resolves GI Prophylaxis: Pepcid DVT Prophylaxis: SCD's Patient seen and case discussed with attending, Dr. Will. <Avery Will - Last Filed: 11/06/17 14:10> Objective - Vital Signs/Intake and Output Vital Signs (last 24 hours): Temp Pulse Resp BP Pulse Ox 99.1 F 100 H 18 160/91 H 97 11/06/17 08:09 11/06/17 08:09 11/06/17 08:09 11/06/17 08:09 11/06/17 08:09 Intake and Output: 11/06/17 11/06/17 06:59 18:59 Intake Total 720 Balance 720 - Medications Medications: Current Medications Famotidine (Pepcid) 20 mg PO HS [facility] Sodium Chloride (Sodium Chloride 0.9%) 1,000 mls @ 100 mls/hr IV .Q10H [facility] Last Admin: 11/05/17 05:34 Dose: 100 mls/hr Meropenem 500 mg/ Sodium (Chloride) 50 mls @ 100 mls/hr IVPB Q8 [facility] PRN Reason: Protocol Stop: 11/06/17 22:29 Insulin Human Lispro (Humalog Low) 0 units SC ACHS [facility] PRN Reason: Protocol Last Admin: 11/06/17 11:58 Dose: 2 units Morphine Sulfate (Morphine) 2 mg IVP Q3 PRN PRN Reason: Pain, severe (8-10) Last Admin: 11/05/17 13:10 Dose: 2 mg Ondansetron HCl (Zofran Inj) 4 mg IVP Q4 PRN PRN Reason: Nausea/Vomiting - Labs Labs: 11/06/17 06:12 11/06/17 06:12 PT 14.7 SECONDS (9.4-12.5) H 11/04/17 05:25 INR 1.27 (0.93-1.08) H 11/04/17 05:25 Attending/Attestation - Attestation I have personally seen and examined this patient.: Yes I have fully participated in the care of the patient.: Yes I have reviewed all pertinent clinical information, including history, physical exam and plan: Yes Notes (Text): 11/06/17 14:09 Medical record note made by the resident after discussion with my direction and input after the patient was personally seen and examined by me. I have reviewed the chart and agree that the record accurately reflects by personal performance of the history, physical exam, data review, and medical decision-making, in the course for the patient. I have also personally directed the plan of care. 67 year old female with a past medical history significant for HTN, DM2 and previous UTI who presented with left sided flank pain ongoing for two days. She was found to have UTI and left hydroureteronephrosis with no signs of mechanical obstruction on CT Abdomen/Pelvis. Patient had left ureteral stent placed by Urology . Urine and blood cultures grew gram negative rods ESBL.We will change antibiotics to Meropenem and will get ID consultation. Management plan was discussed in detail with patient. Education was provided
[2017-11-06] MEDS ORDERED: Meropenem 500 MG in Sodium Chloride 0.9% 50 ML IVPB SCH (14:00)
[2017-11-06] MEDS: Morphine 2 mg/ml ISec IVP PRN (17:43)
--- NOTE | 2017-11-06 18:20 | CP.PCM.CON ---
History of Present Illness - History of Present Illness History of Present Illness: Infectious Disease Consultation: November 06, 2017 67 yo female with initial complaints of left sided flank pain, nausea, vomiting , and dysuria. The patient was found to have UTI and bacteremia with E. coli. The patient does have a history with kidney stones. She was given Ceftriaxone initially and switched to meropenem as the cultures returned. Supportive care. Patient is feeling better after starting antibiotic treatment. Given bacteremia, she will need 14 days of treatment. The patient did have a fever up to 101.4F on 11/05/2017. PMHx: HTN, DM type 2 PSHx: Denies Allergies: NKDA Social Hx: Denies tobacco, EtOH, or illicit drug use. Active Medications Famotidine (Pepcid) 20 mg PO HS [facility] Sodium Chloride (Sodium Chloride 0.9%) 1,000 mls @ 100 mls/hr IV .Q10H [facility] Last Admin: 11/05/17 05:34 Dose: 100 mls/hr Piperacillin Sod/Tazobactam Sod (Zosyn 3.375 In Ns 100ml) 100 mls @ 200 mls/hr IVPB Q6 [facility] PRN Reason: Protocol Insulin Human Lispro (Humalog Low) 0 units SC ACHS [facility] PRN Reason: Protocol Last Admin: 11/06/17 16:13 Dose: Not Given Morphine Sulfate (Morphine) 2 mg IVP Q3 PRN PRN Reason: Pain, severe (8-10) Last Admin: 11/06/17 17:43 Dose: 2 mg Ondansetron HCl (Zofran Inj) 4 mg IVP Q4 PRN PRN Reason: Nausea/Vomiting Family Hx: none given ROS: Left sided flank pain, Nausea, vomiting, dysuria, fevers. No chest pain, melena, hematuria, hematemesis, hematochezia, depression, anxiety , diarrhea, vision loss, hearing loss, headaches, dizziness. Past Patient History - Infectious Disease Hx of Infectious Diseases: None - Past Social History Smoking Status: Never Smoked Alcohol: None Drugs: Denies - HEMATOLOGICAL/ONCOLOGICAL Hx Blood Transfusions: No Hx Blood Transfusion Reaction: No - MUSCULOSKELETAL/RHEUMATOLOGICAL Hx Falls: No - GENITOURINARY/GYNECOLOGICAL Hx Urinary Tract Infection: Yes - PSYCHIATRIC Hx Substance Use: No - SURGICAL HISTORY Hx Surgeries: No - ANESTHESIA Hx Anesthesia: No Hx Anesthesia Reactions: No Hx Malignant Hyperthermia: No Meds Allergies/Adverse Reactions: Allergies Allergy/AdvReac Type Severity Reaction Status Date / Time No Known Allergies Allergy Verified 11/03/17 18:09 - Medications Medications: Current Medications Famotidine (Pepcid) 20 mg PO HS [facility] Sodium Chloride (Sodium Chloride 0.9%) 1,000 mls @ 100 mls/hr IV .Q10H [facility] Last Admin: 11/05/17 05:34 Dose: 100 mls/hr Piperacillin Sod/Tazobactam Sod (Zosyn 3.375 In Ns 100ml) 100 mls @ 200 mls/hr IVPB Q6 [facility] PRN Reason: Protocol Insulin Human Lispro (Humalog Low) 0 units SC ACHS [facility] PRN Reason: Protocol Last Admin: 11/06/17 16:13 Dose: Not Given Morphine Sulfate (Morphine) 2 mg IVP Q3 PRN PRN Reason: Pain, severe (8-10) Last Admin: 11/06/17 17:43 Dose: 2 mg Ondansetron HCl (Zofran Inj) 4 mg IVP Q4 PRN PRN Reason: Nausea/Vomiting Physical Exam - Constitutional Appears: Non-toxic, No Acute Distress - Head Exam Head Exam: ATRAUMATIC, NORMOCEPHALIC - Eye Exam Eye Exam: EOMI, PERRL Pupil Exam: NORMAL ACCOMODATION, PERRL - ENT Exam ENT Exam: Mucous Membranes Moist, Normal External Ear Exam, TM's Normal Bilaterally - Respiratory Exam Respiratory Exam: Clear to Auscultation Bilateral, NORMAL BREATHING PATTERN. absent: Rales, Rhonchi, Wheezes - Cardiovascular Exam Cardiovascular Exam: REGULAR RHYTHM, RRR, +S1, +S2 - GI/Abdominal Exam GI & Abdominal Exam: Normal Bowel Sounds, Soft. absent: Distended, Tenderness - Extremities Exam Extremities exam: Positive for: full ROM, normal inspection - Neurological Exam Neurological exam: Alert, CN II-XII Intact, Oriented x3 - Psychiatric Exam Psychiatric exam: Normal Affect, Normal Mood - Skin Skin Exam: Intact, Normal Color Results - Vital Signs Recent Vital Signs: Last Vital Signs Temp 99.2 F 11/06/17 16:00 Pulse 90 11/06/17 16:00 Resp 20 11/06/17 16:00 BP 164/90 H 11/06/17 16:00 Pulse Ox 98 11/06/17 16:00 - Labs Result Diagrams: 11/06/17 06:12 11/06/17 06:12 Labs: Laboratory Results - last 24 hr 11/05/17 11/06/17 11/06/17 21:41 06:12 06:12 WBC 4.7 D RBC 3.01 L Hgb 9.3 L Hct 27.2 L MCV 90.4 MCH 30.9 MCHC 34.2 RDW 12.6 Plt Count 118 L MPV 8.8 Gran % 59.9 Lymph % (Auto) 24.9 [place] % (Auto) 13.1 H Eos % (Auto) 1.9 Baso % (Auto) 0.2 Gran # 2.83 Lymph # (Auto) 1.2 [place] # (Auto) 0.6 Eos # (Auto) 0.1 Baso # (Auto) 0.01 Sodium 139 Potassium 3.5 L Chloride 104 Carbon Dioxide 24 Anion Gap 13 BUN 13 Creatinine 0.6 L Est GFR ( Amer) > 60 Est GFR (Non-Af Amer) > 60 POC Glucose (mg/dL) 103 Random Glucose 121 H Calcium 9.3 Total Bilirubin 0.6 AST 18 ALT 25 Alkaline Phosphatase 64 Total Protein 6.1 Albumin 3.1 Globulin 3.0 Albumin/Globulin Ratio 1.0 L 11/06/17 11/06/17 11/06/17 07:28 11:20 15:50 WBC RBC Hgb Hct MCV MCH MCHC RDW Plt Count MPV Gran % Lymph % (Auto) [place] % (Auto) Eos % (Auto) Baso % (Auto) Gran # Lymph # (Auto) [place] # (Auto) Eos # (Auto) Baso # (Auto) Sodium Potassium Chloride Carbon Dioxide Anion Gap BUN Creatinine Est GFR ( Amer) Est GFR (Non-Af Amer) POC Glucose (mg/dL) 120 H 203 H 132 H Random Glucose Calcium Total Bilirubin AST ALT Alkaline Phosphatase Total Protein Albumin Globulin Albumin/Globulin Ratio Assessment & Plan - Assessment and Plan (Free Text) Assessment: 67 yo female with E. coli bacteremia and UTI with pyelonephritis with fevers up to 101.4F. The patient was initially on Ceftriaxone but the E. coli has resistances to multiple antibiotics. E. coli was sensitive to Carbapenems and Zosyn. Must give 14 days of IV antibiotics for the pyelonephritis and bacteremia. Supportive care. Thank you for allowing me to participate in the care of the patient, we will follow with you.
[2017-11-06] MEDS: Sodium Chloride 0.9% 1,000 ML IV SCH (21:56)
[2017-11-07] MEDS: Piperacillin/Tazobact 3.375 gm 100 ML IVPB SCH ×4 (00:39→18:10)
[2017-11-07] MEDS: Morphine 2 mg/ml ISec IVP PRN (03:22)
[2017-11-07 06:28] LABS: BASO # 0.02 K/mm3 (0.0-2.0); BASO % 0.5 % (0.0-3.0); EOS # 0.1 (0.0-0.7); EOS % 2.4 % (1.5-5.0); GRAN # 2.27 (1.4-6.5); GRAN % 54.2 % (50.0-68.0); HEMOGLOBIN 9.4 g/dL (12.0-16.0); LYMPH # 1.3 (1.2-3.4); LYMPH % 30.3 % (22.0-35.0); MEAN CELL VOLUME 89.3 fl (80.0-105.0); MEAN CORPUSCULAR HEMOGLOBIN 30.6 pg (25.0-35.0); MEAN CORPUSCULAR HGB CONC 34.3 g/dl (31.0-37.0); MEAN PLATELET VOLUME 8.8 fl (7.0-11.0); MONO # 0.5 (0.1-0.6); MONO % 12.6 % (1.0-6.0); RBC 3.07 10^6/uL (3.5-6.1); RED CELL DISTRIBUTION WIDTH 12.5 % (11.5-14.5); WHITE BLOOD COUNT 4.2 10^3/ul (4.5-11.0)
[2017-11-07 07:07] LABS: ALT/SGPT 34 U/L (7-56); AST/SGOT 20 U/L (14-36); BLOOD UREA NITROGEN 12 mg/dL (7-21); CALCIUM 9.1 mg/dL (8.4-10.5); GFR AFRICAN-AMERICAN > 60; GFR NON-AFRICAN AMERICAN > 60
[2017-11-07] MEDS: Insulin Lispro (humaLOG) LOW Coverage SC SCH ×4 (07:30→22:00)
--- NOTE | 2017-11-07 17:20 | CP.PCM.PN ---
Subjective - Date & Time of Evaluation Date of Evaluation: 11/07/17 Time of Evaluation: 15:00 - Subjective Subjective: Infectious Disease Follow Up: November 07, 2017 67 yo female with initial complaints of left sided flank pain, nausea, vomiting , and dysuria. The patient was found to have UTI and bacteremia with E. coli. The patient does have a history with kidney stones. She was given Ceftriaxone initially and switched to meropenem as the cultures returned. Supportive care. Patient is feeling better after starting antibiotic treatment. Given bacteremia, she will need 14 days of treatment. The patient did have a fever up to 101.4F on 11/05/2017. Patient feeling better so far. Objective - Vital Signs/Intake and Output Vital Signs (last 24 hours): Temp Pulse Resp BP Pulse Ox 98.3 F 88 20 135/76 98 11/07/17 08:06 11/07/17 08:06 11/07/17 08:06 11/07/17 08:06 11/07/17 08:06 Intake and Output: 11/07/17 11/07/17 06:59 18:59 Intake Total 360 120 Balance 360 120 - Medications Medications: Current Medications Acetaminophen (Tylenol 325mg Tab) 650 mg PO Q6H PRN PRN Reason: Fever >100.4 F Famotidine (Pepcid) 20 mg PO HS [facility] Last Admin: 11/06/17 21:56 Dose: 20 mg Piperacillin Sod/Tazobactam Sod (Zosyn 3.375 In Ns 100ml) 100 mls @ 200 mls/hr IVPB Q6 [facility] PRN Reason: Protocol Last Admin: 11/07/17 15:31 Dose: Not Given Ibuprofen (Motrin Tab) 400 mg PO Q6H PRN PRN Reason: Pain, Mild (1-3) Insulin Human Lispro (Humalog Low) 0 units SC ACHS [facility] PRN Reason: Protocol Last Admin: 11/07/17 11:59 Dose: Not Given Morphine Sulfate (Morphine) 2 mg IVP Q3 PRN PRN Reason: Pain, severe (8-10) Last Admin: 11/07/17 03:22 Dose: 2 mg Ondansetron HCl (Zofran Inj) 4 mg IVP Q4 PRN PRN Reason: Nausea/Vomiting - Labs Labs: 11/07/17 05:30 03/08/18 05:30 PT 14.7 SECONDS (9.4-12.5) H 11/04/17 05:25 INR 1.27 (0.93-1.08) H 11/04/17 05:25 - Constitutional Appears: Non-toxic, No Acute Distress - Head Exam Head Exam: ATRAUMATIC, NORMOCEPHALIC - Eye Exam Eye Exam: EOMI, PERRL Pupil Exam: NORMAL ACCOMODATION, PERRL - ENT Exam ENT Exam: Mucous Membranes Moist, Normal External Ear Exam, TM's Normal Bilaterally - Neck Exam Neck Exam: Full ROM, Normal Inspection - Respiratory Exam Respiratory Exam: Clear to Ausculation Bilateral, NORMAL BREATHING PATTERN. absent: Rales, Rhonchi, Wheezes - Cardiovascular Exam Cardiovascular Exam: REGULAR RHYTHM, RRR, +S1, +S2 - GI/Abdominal Exam GI & Abdominal Exam: Soft, Normal Bowel Sounds. absent: Distended, Tenderness - Extremities Exam Extremities Exam: Full ROM, Normal Inspection - Neurological Exam Neurological Exam: Alert, Awake, CN II-XII Intact, Oriented x3 - Psychiatric Exam Psychiatric exam: Normal Affect, Normal Mood - Skin Skin Exam: Intact, Normal Color Assessment and Plan - Assessment and Plan (Free Text) Assessment: 67 yo female with E. coli bacteremia and UTI with pyelonephritis with fevers up to 101.4F. The patient was initially on Ceftriaxone but the E. coli has resistances to multiple antibiotics. E. coli was sensitive to Carbapenems and Zosyn. Must give 14 days of IV antibiotics for the pyelonephritis and bacteremia. Supportive care. Can give ertapenem IV as an outpatient as the patient appears to be tolerating meropenem. Thank you for allowing me to participate in the care of the patient, we will follow with you.
--- NOTE | 2017-11-07 18:50 | CP.PCM.PN ---
<Jose Manuel Owens - Last Filed: 11/07/17 18:47> Subjective - Date & Time of Evaluation Date of Evaluation: 11/07/17 Time of Evaluation: 09:00 - Subjective Subjective: Medicine Progress Note: Patient seen and assessed at bedside. Dip Filler services were used for communication as patient speaks predominately Armenian. No acute events were noted overnight by patient or nursing staff. Patient reports that suprapubic pain is improving with her only experiencing this pain directly after urination. She denies any chills, headache, chest pain, palpitations, SOB, cough , wheezing, N/V/D/C, pyuria, urethral discharge, skin changes or any numbness/ tingling/weakness of any extremity. Objective - Vital Signs/Intake and Output Vital Signs (last 24 hours): Temp Pulse Resp BP Pulse Ox 97.7 F 80 19 160/78 H 99 11/07/17 16:00 11/07/17 16:00 11/07/17 16:00 11/07/17 16:00 11/07/17 16:00 Intake and Output: 11/07/17 11/07/17 06:59 18:59 Intake Total 360 120 Balance 360 120 - Medications Medications: Current Medications Acetaminophen (Tylenol 325mg Tab) 650 mg PO Q6H PRN PRN Reason: Fever >100.4 F Famotidine (Pepcid) 20 mg PO HS [facility] Last Admin: 11/06/17 21:56 Dose: 20 mg Hydralazine HCl (Apresoline) 10 mg IVP Q6 PRN PRN Reason: Systolic Blood Pressure Ertapenem 1 gm/ Sodium (Chloride) 50 mls @ 100 mls/hr IVPB Q24H [facility] PRN Reason: Protocol Ibuprofen (Motrin Tab) 400 mg PO Q6H PRN PRN Reason: Pain, Mild (1-3) Insulin Human Lispro (Humalog Low) 0 units SC ACHS [facility] PRN Reason: Protocol Last Admin: 11/07/17 18:09 Dose: Not Given Ondansetron HCl (Zofran Inj) 4 mg IVP Q4 PRN PRN Reason: Nausea/Vomiting - Labs Labs: 11/07/17 05:30 11/07/17 05:30 PT 14.7 SECONDS (9.4-12.5) H 11/04/17 05:25 INR 1.27 (0.93-1.08) H 11/04/17 05:25 - Constitutional Appears: Non-toxic, No Acute Distress - Head Exam Head Exam: ATRAUMATIC, NORMOCEPHALIC - Eye Exam Eye Exam: EOMI, PERRL Pupil Exam: NORMAL ACCOMODATION, PERRL - ENT Exam ENT Exam: Mucous Membranes Moist, Normal Exam - Neck Exam Neck Exam: Full ROM, Normal Inspection. absent: Lymphadenopathy - Respiratory Exam Respiratory Exam: Clear to Ausculation Bilateral, NORMAL BREATHING PATTERN - Cardiovascular Exam Cardiovascular Exam: REGULAR RHYTHM - GI/Abdominal Exam GI & Abdominal Exam: Soft, Normal Bowel Sounds. absent: Tenderness - Extremities Exam Extremities Exam: Full ROM, Normal Capillary Refill, Normal Inspection. absent : Calf Tenderness, Joint Swelling, Pedal Edema, Tenderness - Back Exam Back Exam: NORMAL INSPECTION. absent: CVA tenderness (L), CVA tenderness (R) - Neurological Exam Neurological Exam: Alert, Awake, CN II-XII Intact, Normal Gait, Oriented x3 - Psychiatric Exam Psychiatric exam: Normal Affect, Normal Mood - Skin Skin Exam: Dry, Intact, Normal Color, Warm Assessment and Plan - Assessment and Plan (Free Text) Assessment: 67 year old female with a past medical history significant for HTN, DM2 and previous UTI who presented with left sided flank pain ongoing for two days. She was found to have UTI on UA and left hydroureteronephrosis with no signs of mechanical obstruction on CT Abdomen/Pelvis. Patient had left ureteral stent placed by Urology. Urine and blood cultures grew ESBL positive E. Coli. Contact precautions were put in place. Patient was switched from IV Rocephin to IV Merrem with ID consulted. After consultation, Merrem was replaced with Zosyn. Repeat blood cultures have been negative for 48 hours. Patient approved for outpatient IV antibiotic therapy at [facility] for 11 days pending midline placement. She will be received Ertapenem, as this has a more convenient dosing schedule. Plan: 1. ESBL Positive E. Coli Cystitis with associated Bacteremia -CT Abdomen/Pelvis showed left hydroureteronephrosis without evidence of obstructing calculus -UA showed postive urine nitrates, moderate LE, WBC TNTC and many bacteria -S/P placement of left ureteral stent by Urology -Repeat blood cultures negative for 48 hours -Afebrile for 48 hours and without leukocytosis, tachycardia, tachypnea or lactic acidosis -Started IV Ertapenem (Day 3) -Tylenol and Motrin PRN for pain control -Continue Zofran 4mg IVP Q4H PRN for N/V -Maintain contact precautions for ESBL -Patient to follow up with Urology as an oupatient for stent removal -Patient to follow up with [facility] at [facility] daily for remainder of antibiotic therapy upon discharge -Urology and ID consulted, all recommendations appreciated 2. History of DM2 -SSI-Low and Accuchecks ACHS -Carbohydrate Consistent Diet 3. HTN -Started scheduled Atenolol and Norvasc -Hydralazine PRN 4. Asymptomatic Normocytic Anemia -Iron and Hemoglobin/Hematocrit below normal limits -Ferritin pending GI Prophylaxis: Pepcid DVT Prophylaxis: SCD's Patient seen and case discussed with attending, Dr. Will. <Avery Will - Last Filed: 11/08/17 08:12> Objective - Vital Signs/Intake and Output Vital Signs (last 24 hours): Temp Pulse Resp BP Pulse Ox 97.7 F 89 20 146/84 99 11/07/17 16:00 11/08/17 00:00 11/08/17 00:00 11/08/17 00:00 11/07/17 16:00 Intake and Output: 11/08/17 11/08/17 06:59 18:59 Intake Total 420 Balance 420 - Medications Medications: Current Medications Acetaminophen (Tylenol 325mg Tab) 650 mg PO Q6H PRN PRN Reason: Fever >100.4 F Amlodipine Besylate (Norvasc) 5 mg PO DAILY [facility] Last Admin: 11/07/17 18:56 Dose: 5 mg Atenolol (Tenormin) 50 mg PO DAILY [facility] Famotidine (Pepcid) 20 mg PO HS [facility] Last Admin: 11/08/17 01:12 Dose: 20 mg Hydralazine HCl (Apresoline) 10 mg IVP Q6 PRN PRN Reason: Systolic Blood Pressure Ertapenem 1 gm/ Sodium (Chloride) 100 mls @ 100 mls/hr IVPB Q24H [facility] PRN Reason: Protocol Last Admin: 11/07/17 21:04 Dose: 100 mls/hr Ibuprofen (Motrin Tab) 400 mg PO Q6H PRN PRN Reason: Pain, Mild (1-3) Insulin Human Lispro (Humalog Low) 0 units SC ACHS [facility] PRN Reason: Protocol Last Admin: 11/07/17 22:00 Dose: Not Given Ondansetron HCl (Zofran Inj) 4 mg IVP Q4 PRN PRN Reason: Nausea/Vomiting - Labs Labs: 11/08/17 06:15 11/08/17 06:15 PT 14.7 SECONDS (9.4-12.5) H 11/04/17 05:25 INR 1.27 (0.93-1.08) H 11/04/17 05:25 Attending/Attestation - Attestation I have personally seen and examined this patient.: Yes I have fully participated in the care of the patient.: Yes I have reviewed all pertinent clinical information, including history, physical exam and plan: Yes Notes (Text): 11/08/17 08:11 Medical record note made by the resident after discussion with my direction and input after the patient was personally seen and examined by me. I have reviewed the chart and agree that the record accurately reflects by personal performance of the history, physical exam, data review, and medical decision-making, in the course for the patient. I have also personally directed the plan of care. 67 year old female with a past medical history significant for HTN, DM2 and previous UTI who presented with left sided flank pain ongoing for two days. She was found to have UTI and left hydroureteronephrosis with no signs of mechanical obstruction on CT Abdomen/Pelvis. Patient had left ureteral stent placed by Urology . Urine and blood cultures grew gram negative rods ESBL on IV Zosyn.We will get Mid line and will change to IV invanz, need total 12 days of IV antibiotics Management plan was discussed in detail with patient. Education was provided
[2017-11-08 06:52] LABS: BASO # 0.02 K/mm3 (0.0-2.0); BASO % 0.5 % (0.0-3.0); EOS # 0.1 (0.0-0.7); EOS % 3.3 % (1.5-5.0); GRAN % 47.5 % (50.0-68.0); HEMOGLOBIN 9.6 g/dL (12.0-16.0); LYMPH # 1.5 (1.2-3.4); LYMPH % 36.6 % (22.0-35.0); MEAN CELL VOLUME 89.5 fl (80.0-105.0); MEAN CORPUSCULAR HEMOGLOBIN 30.7 pg (25.0-35.0); MEAN CORPUSCULAR HGB CONC 34.3 g/dl (31.0-37.0); MEAN PLATELET VOLUME 8.8 fl (7.0-11.0); MONO # 0.5 (0.1-0.6); MONO % 12.1 % (1.0-6.0); RBC 3.13 10^6/uL (3.5-6.1); RED CELL DISTRIBUTION WIDTH 12.4 % (11.5-14.5); WHITE BLOOD COUNT 4.2 10^3/ul (4.5-11.0)
[2017-11-08 07:07] LABS: ALBUMIN 3.2 g/dL (3.0-4.8); ALT/SGPT 32 U/L (7-56); AST/SGOT 20 U/L (14-36); BLOOD UREA NITROGEN 14 mg/dL (7-21); CALCIUM 9.4 mg/dL (8.4-10.5); GFR AFRICAN-AMERICAN > 60; GFR NON-AFRICAN AMERICAN > 60
[2017-11-08] MEDS: Insulin Lispro (humaLOG) LOW Coverage SC SCH ×4 (09:58→23:07)
--- NOTE | 2017-11-08 13:56 | CP.PCM.PN ---
Subjective - Date & Time of Evaluation Date of Evaluation: 11/08/17 Time of Evaluation: 11:00 - Subjective Subjective: Infectious Disease Follow Up: November 08, 2017 67 yo female with initial complaints of left sided flank pain, nausea, vomiting , and dysuria. The patient was found to have UTI and bacteremia with E. coli. The patient does have a history with kidney stones. She was given Ceftriaxone initially and switched to meropenem as the cultures returned. Supportive care. Patient is feeling better after starting antibiotic treatment. Given bacteremia, she will need 14 days of treatment. The patient did have a fever up to 101.4F on 11/05/2017. Would prefer to have a negative culture before discharging patient. Patient feeling better so far. Objective - Vital Signs/Intake and Output Vital Signs (last 24 hours): Temp Pulse Resp BP Pulse Ox 98.2 F 78 20 137/70 97 11/08/17 06:00 11/08/17 09:59 11/08/17 06:00 11/08/17 09:59 11/08/17 06:00 Intake and Output: 11/08/17 11/08/17 06:59 18:59 Intake Total 420 Balance 420 - Medications Medications: Current Medications Acetaminophen (Tylenol 325mg Tab) 650 mg PO Q6H PRN PRN Reason: Fever >100.4 F Amlodipine Besylate (Norvasc) 5 mg PO DAILY [facility] Last Admin: 11/08/17 09:58 Dose: 5 mg Atenolol (Tenormin) 50 mg PO DAILY [facility] Last Admin: 11/08/17 09:59 Dose: 50 mg Famotidine (Pepcid) 20 mg PO HS [facility] Last Admin: 11/08/17 01:12 Dose: 20 mg Hydralazine HCl (Apresoline) 10 mg IVP Q6 PRN PRN Reason: Systolic Blood Pressure Ertapenem 1 gm/ Sodium (Chloride) 100 mls @ 100 mls/hr IVPB Q24H [facility] PRN Reason: Protocol Last Admin: 11/07/17 21:04 Dose: 100 mls/hr Ibuprofen (Motrin Tab) 400 mg PO Q6H PRN PRN Reason: Pain, Mild (1-3) Insulin Human Lispro (Humalog Low) 0 units SC ACHS [facility] PRN Reason: Protocol Last Admin: 11/08/17 13:00 Dose: Not Given Ondansetron HCl (Zofran Inj) 4 mg IVP Q4 PRN PRN Reason: Nausea/Vomiting - Labs Labs: 11/08/17 06:15 11/08/17 06:15 PT 14.7 SECONDS (9.4-12.5) H 11/04/17 05:25 INR 1.27 (0.93-1.08) H 11/04/17 05:25 - Constitutional Appears: Non-toxic, No Acute Distress - Head Exam Head Exam: ATRAUMATIC, NORMOCEPHALIC - Eye Exam Eye Exam: EOMI, PERRL Pupil Exam: NORMAL ACCOMODATION, PERRL - ENT Exam ENT Exam: Mucous Membranes Moist, Normal External Ear Exam, TM's Normal Bilaterally - Neck Exam Neck Exam: Full ROM, Normal Inspection - Respiratory Exam Respiratory Exam: Clear to Ausculation Bilateral, NORMAL BREATHING PATTERN. absent: Rales, Rhonchi, Wheezes - Cardiovascular Exam Cardiovascular Exam: REGULAR RHYTHM, RRR, +S1, +S2 - GI/Abdominal Exam GI & Abdominal Exam: Soft, Normal Bowel Sounds. absent: Distended, Tenderness - Extremities Exam Extremities Exam: Full ROM, Normal Inspection - Neurological Exam Neurological Exam: Alert, Awake, CN II-XII Intact, Oriented x3 - Psychiatric Exam Psychiatric exam: Normal Affect, Normal Mood - Skin Skin Exam: Intact, Normal Color Assessment and Plan - Assessment and Plan (Free Text) Assessment: 67 yo female with E. coli bacteremia and UTI with pyelonephritis with fevers up to 101.4F. The patient was initially on Ceftriaxone but the E. coli has resistances to multiple antibiotics. E. coli was sensitive to Carbapenems and Zosyn. Must give 14 days of IV antibiotics for the pyelonephritis and bacteremia. Supportive care. Can give ertapenem IV as an outpatient as the patient appears to be tolerating meropenem. Supportive care. Prefer negative culture before discharging from the hospital. Thank you for allowing me to participate in the care of the patient, we will follow with you.
--- NOTE | 2017-11-08 16:44 | CP.PCM.PN ---
<Jose Manuel Owens - Last Filed: 11/08/17 16:14> Subjective - Date & Time of Evaluation Date of Evaluation: 11/08/17 Time of Evaluation: 16:14 - Subjective Subjective: Medicine Progress Note: Patient seen and assessed at bedside with spring bender assistance. No acute events overnight. Patient's repeat blood cultures grew gram negative rods with second set of repeat blood cultures pending. Patient agreed that she should remain hospitalized until cultures are negative. She reports that her suprapubic pain is improving. She denies any other complaints at this time including fever, chills, headache, chest pain, SOB, cough, N/V/D/C, hematuria, dysuria, skin changes or any numbness/tingling/weakness of any extremity. Objective - Vital Signs/Intake and Output Vital Signs (last 24 hours): Temp Pulse Resp BP Pulse Ox 98.2 F 78 20 137/70 97 11/08/17 06:00 11/08/17 09:59 11/08/17 06:00 11/08/17 09:59 11/08/17 06:00 Intake and Output: 11/08/17 11/08/17 06:59 18:59 Intake Total 420 Balance 420 - Medications Medications: Current Medications Acetaminophen (Tylenol 325mg Tab) 650 mg PO Q6H PRN PRN Reason: Fever >100.4 F Amlodipine Besylate (Norvasc) 5 mg PO DAILY [facility] Last Admin: 11/08/17 09:58 Dose: 5 mg Atenolol (Tenormin) 50 mg PO DAILY [facility] Last Admin: 11/08/17 09:59 Dose: 50 mg Famotidine (Pepcid) 20 mg PO HS [facility] Last Admin: 11/08/17 01:12 Dose: 20 mg Hydralazine HCl (Apresoline) 10 mg IVP Q6 PRN PRN Reason: Systolic Blood Pressure Ertapenem 1 gm/ Sodium (Chloride) 100 mls @ 100 mls/hr IVPB Q24H [facility] PRN Reason: Protocol Last Admin: 11/07/17 21:04 Dose: 100 mls/hr Ibuprofen (Motrin Tab) 400 mg PO Q6H PRN PRN Reason: Pain, Mild (1-3) Insulin Human Lispro (Humalog Low) 0 units SC ACHS [facility] PRN Reason: Protocol Last Admin: 11/08/17 13:00 Dose: Not Given Ondansetron HCl (Zofran Inj) 4 mg IVP Q4 PRN PRN Reason: Nausea/Vomiting - Labs Labs: 11/08/17 06:15 11/08/17 06:15 PT 14.7 SECONDS (9.4-12.5) H 11/04/17 05:25 INR 1.27 (0.93-1.08) H 11/04/17 05:25 - Constitutional Appears: Non-toxic, No Acute Distress - Head Exam Head Exam: ATRAUMATIC, NORMOCEPHALIC - Eye Exam Eye Exam: EOMI, Normal appearance, PERRL Pupil Exam: NORMAL ACCOMODATION, PERRL - ENT Exam ENT Exam: Mucous Membranes Moist, Normal Exam, Normal Oropharynx - Neck Exam Neck Exam: Full ROM, Normal Inspection. absent: Lymphadenopathy, Meningismus, Tenderness, Thyromegaly - Respiratory Exam Respiratory Exam: Clear to Ausculation Bilateral, NORMAL BREATHING PATTERN. absent: Accessory Muscle Use, Chest Wall Tenderness, Decreased Breath Sounds, Prolonged Expiratory Phase, Rales, Rhonchi, Wheezes, Respiratory Distress, Stridor - Cardiovascular Exam Cardiovascular Exam: REGULAR RHYTHM, RRR, +S1, +S2. absent: Bradycardia, Tachycardia, Clicks, Diastolic murmur, Gallop, Irregular Rhythm, JVD, Rubs, +S4 , Murmur - GI/Abdominal Exam GI & Abdominal Exam: Soft, Normal Bowel Sounds. absent: Distended, Firm, Guarding, Tenderness, Rebound - Extremities Exam Extremities Exam: Full ROM, Joint Swelling, Normal Capillary Refill, Normal Inspection. absent: Calf Tenderness, Pedal Edema, Tenderness - Back Exam Back Exam: NORMAL INSPECTION - Neurological Exam Neurological Exam: Alert, Awake, CN II-XII Intact, Normal Gait, Oriented x3. absent: Abnormal Gait, Altered, Motor Sensory Deficit, Reflexes Normal - Psychiatric Exam Psychiatric exam: Normal Affect, Normal Mood - Skin Skin Exam: Dry, Intact, Normal Color, Warm Additional comments: Midline without any surrounding erythema, induration, discharge or fluctuance noted surrounding insertion site Assessment and Plan - Assessment and Plan (Free Text) Assessment: 67 year old female with a past medical history significant for HTN, DM2 and previous UTI who presented with left sided flank pain ongoing for two days. She was found to have UTI on UA and left hydroureteronephrosis with no signs of mechanical obstruction on CT Abdomen/Pelvis. Patient had left ureteral stent placed by Urology. Urine and blood cultures grew ESBL positive E. Coli. Contact precautions were put in place. Patient was switched from IV Rocephin to IV Merrem with ID consulted. After consultation, Merrem was replaced with Zosyn. Repeat blood cultures grew gram negative rods with final report pending. Second set of repeat blood cultures drawn and pending. Patient will remain hospitalized until blood cultures are negative. Patient approved for outpatient IV antibiotic therapy at [facility] [place] [facility] [place] of therapy upon discharge. Plan: 1. ESBL Positive E. Coli Cystitis with associated Bacteremia -CT Abdomen/Pelvis showed left hydroureteronephrosis without evidence of obstructing calculus -UA showed postive urine nitrates, moderate LE, WBC TNTC and many bacteria -Initial blood and urine cultures grew ESBL positive E. Coli -S/P placement of left ureteral stent by Urology -S/P midline catheter placement -Repeat blood cultures growing gram negative rods with final report pending -Second set of blood cultures drawn -Afebrile and without leukocytosis, tachycardia, tachypnea or lactic acidosis -Continue IV Ertapenem (Day 2) -Continue Tylenol and Motrin PRN for pain control -Continue Zofran 4mg IVP Q4H PRN for N/V -Maintain contact precautions for ESBL -Urology and ID consulted, all recommendations appreciated 2. History of DM2 -SSI-Low and Accuchecks ACHS -Carbohydrate Consistent Diet 3. HTN -Continue Norvasc and Hydralazine PRN 4. Asymptomatic Normocytic Anemia -Iron and Hemoglobin/Hematocrit below normal limits -Iron below normal limits and Ferritin within normal limits GI Prophylaxis: Pepcid DVT Prophylaxis: SCD's Disposition: Patient will remain hospitalized until blood cultures negative. Patient to follow up with [facility] at [facility] [place] for remainder of antibiotic therapy upon discharge as well as with Urology for outpatient stent removal. Patient seen and case discussed with attending, Dr. Will. <Avery Will - Last Filed: 11/09/17 11:48> Objective - Vital Signs/Intake and Output Vital Signs (last 24 hours): Temp Pulse Resp BP Pulse Ox 98 F 78 18 104/62 98 11/09/17 08:25 11/09/17 09:10 11/09/17 08:25 11/09/17 09:10 11/09/17 08:25 - Medications Medications: Current Medications Acetaminophen (Tylenol 325mg Tab) 650 mg PO Q6H PRN PRN Reason: Fever >100.4 F Amlodipine Besylate (Norvasc) 5 mg PO DAILY [facility] Last Admin: 11/09/17 09:10 Dose: 5 mg Famotidine (Pepcid) 20 mg PO HS [facility] Last Admin: 11/08/17 21:21 Dose: 20 mg Hydralazine HCl (Apresoline) 10 mg IVP Q6 PRN PRN Reason: Systolic Blood Pressure Ertapenem 1 gm/ Sodium (Chloride) 100 mls @ 100 mls/hr IVPB Q24H [facility] PRN Reason: Protocol Last Admin: 11/08/17 18:51 Dose: 100 mls/hr Ibuprofen (Motrin Tab) 400 mg PO Q6H PRN PRN Reason: Pain, Mild (1-3) Insulin Human Lispro (Humalog Low) 0 units SC ACHS [facility] PRN Reason: Protocol Last Admin: 11/09/17 08:25 Dose: Not Given Ondansetron HCl (Zofran Inj) 4 mg IVP Q4 PRN PRN Reason: Nausea/Vomiting - Labs Labs: 11/08/17 06:15 11/08/17 06:15 PT 14.7 SECONDS (9.4-12.5) H 11/04/17 05:25 INR 1.27 (0.93-1.08) H 11/04/17 05:25 Attending/Attestation - Attestation I have personally seen and examined this patient.: Yes I have fully participated in the care of the patient.: Yes I have reviewed all pertinent clinical information, including history, physical exam and plan: Yes Notes (Text): 11/09/17 11:43 Medical record note made by the resident after discussion with my direction and input after the patient was personally seen and examined by me. I have reviewed the chart and agree that the record accurately reflects by personal performance of the history, physical exam, data review, and medical decision-making, in the course for the patient. I have also personally directed the plan of care. 67 yrs old female with E. coli bacteremia and UTI with pyelonephritiss,She isSP left ureter stent for hydronephrosis. The patient was initially on Ceftriaxone but the E. coli has resistances to multiple antibiotics. E. coli was sensitive to Carbapenems and Zosyn ,will need need 14 days of IV antibiotics for the pyelonephritis and bacteremia. .She is on ertapenem IV , will hold discharge today as patient blood cultures from has come back positive.Patient is afebrile since 48 hours.We will repeat blood cultures and will get 2D echo. Management plan was discussed in detail with patient. Education was provided.
[2017-11-08 18:14] VITALS: O2SAT 98
[2017-11-09] MEDS: Insulin Lispro (humaLOG) LOW Coverage SC SCH ×3 (08:25→17:24)
--- NOTE | 2017-11-09 16:40 | CARD ---
APPROVED REPORT EXAM: Two-dimensional and M-mode echocardiogram with Doppler and color Doppler. INDICATION 2D DIMENSIONS Left Atrium (2D)3.7 (1.6-4.0cm)IVSd1.0 (0.7-1.1cm) LVDd4.5 (3.9-5.9cm)PWd1.1 (0.7-1.1cm) LVDs3.1 (2.5-4.0cm)FS (%) 32.2 % LVEF (%)60.5 (>50%) M-Mode DIMENSIONS Aortic Root3.00 (2.2-3.7cm)Aortic Cusp Exc.1.70 (1.5-2.0cm) Aortic Valve AoV Peak Isdiqsny209.0cm/Katharine Peak GR.9mmHgAI P 1/2 [id number] Mitral Valve MV E Hravowck31.2cm/sMV A Inzyttaw50.2cm/sE/A ratio1.0 TDI Lateral E' Peak V8.27cm/sMedial E' Peak V5.69cm/sE/Lateral E'7.6 E/Medial E'11.1 Tricuspid Valve TR Peak Hhmntwaf538mm/sRAP [id number] Peak Gr.27mmHg [id number] LEFT VENTRICLE The left ventricle is normal size. There is normal left ventricular wall thickness. The left ventricular ejection fraction is within the normal range. Infero-lateral hypokinesis Transmitral Doppler flow pattern is Grade I-abnormal relaxation pattern. No left ventricle thrombus noted on this study. RIGHT VENTRICLE The right ventricle is normal size. There is normal right ventricular wall thickness. The right ventricular systolic function is normal. ATRIA The left atrium size is normal. The right atrium size is normal. AORTIC VALVE The aortic valve is mildly thickened. There is mild to moderate aortic regurgitation. MITRAL VALVE The mitral valve is mildly thickened. Mitral regurgitation is mild. TRICUSPID VALVE There is mild tricuspid regurgitation. There is mild pulmonary hypertension. PULMONIC VALVE There is mild pulmonic valvular regurgitation. GREAT VESSELS The aortic root is normal in size. PERICARDIAL EFFUSION There is no pericardial effusion. <Conclusion> The left ventricle is normal size. There is normal left ventricular wall thickness. The left ventricular ejection fraction is within the normal range. Infero-lateral hypokinesis Transmitral Doppler flow pattern is Grade I-abnormal relaxation pattern. There is mild to moderate aortic regurgitation. Mitral regurgitation is mild. There is mild tricuspid regurgitation. There is mild pulmonary hypertension.
[2017-11-09 16:42] VITALS: BP 129/88; PULSE 84; RESP 20; TEMP 98.9
--- NOTE | 2017-11-09 16:46 | CP.PCM.PN ---
Subjective - Date & Time of Evaluation Date of Evaluation: 11/09/17 Time of Evaluation: 14:00 - Subjective Subjective: 67 yo female with initial complaints of left sided flank pain, nausea, vomiting , and dysuria. The patient was found to have UTI and bacteremia with E. coli. The patient does have a history with kidney stones. She was given Ceftriaxone initially and switched to meropenem as the cultures returned. Supportive care. Patient is feeling better after starting antibiotic treatment. Given bacteremia, she will need 14 days of treatment. The patient did have a fever up to 101.4F on 11/05/2017. Would prefer to have a negative culture before discharging patient. Patient feeling better so far. Repeat blood culture pending... negative at 24 hours. Objective - Vital Signs/Intake and Output Vital Signs (last 24 hours): Temp Pulse Resp BP Pulse Ox 98 F 78 18 104/62 98 11/09/17 08:25 11/09/17 09:10 11/09/17 08:25 11/09/17 09:10 11/09/17 08:25 Intake and Output: 11/09/17 11/09/17 06:59 18:59 Intake Total 720 Balance 720 - Medications Medications: Current Medications Acetaminophen (Tylenol 325mg Tab) 650 mg PO Q6H PRN PRN Reason: Fever >100.4 F Amlodipine Besylate (Norvasc) 5 mg PO DAILY [facility] Last Admin: 11/09/17 09:10 Dose: 5 mg Famotidine (Pepcid) 20 mg PO HS [facility] Last Admin: 11/08/17 21:21 Dose: 20 mg Hydralazine HCl (Apresoline) 10 mg IVP Q6 PRN PRN Reason: Systolic Blood Pressure Ertapenem 1 gm/ Sodium (Chloride) 100 mls @ 100 mls/hr IVPB Q24H [facility] PRN Reason: Protocol Last Admin: 11/08/17 18:51 Dose: 100 mls/hr Ibuprofen (Motrin Tab) 400 mg PO Q6H PRN PRN Reason: Pain, Mild (1-3) Insulin Human Lispro (Humalog Low) 0 units SC ACHS [facility] PRN Reason: Protocol Last Admin: 11/09/17 12:05 Dose: 1 units Ondansetron HCl (Zofran Inj) 4 mg IVP Q4 PRN PRN Reason: Nausea/Vomiting - Labs Labs: 11/08/17 06:15 11/08/17 06:15 PT 14.7 SECONDS (9.4-12.5) H 11/04/17 05:25 INR 1.27 (0.93-1.08) H 11/04/17 05:25 - Constitutional Appears: Non-toxic, No Acute Distress - Head Exam Head Exam: ATRAUMATIC, NORMOCEPHALIC - Eye Exam Eye Exam: EOMI, PERRL Pupil Exam: NORMAL ACCOMODATION, PERRL - ENT Exam ENT Exam: Mucous Membranes Moist, Normal External Ear Exam, TM's Normal Bilaterally - Neck Exam Neck Exam: Full ROM, Normal Inspection - Respiratory Exam Respiratory Exam: Decreased Breath Sounds, Clear to Ausculation Bilateral. absent: Rales, Rhonchi, Wheezes - Cardiovascular Exam Cardiovascular Exam: REGULAR RHYTHM, RRR, +S1, +S2 - GI/Abdominal Exam GI & Abdominal Exam: Soft, Normal Bowel Sounds. absent: Distended, Tenderness - Extremities Exam Extremities Exam: Full ROM, Normal Inspection. absent: Joint Swelling, Pedal Edema - Neurological Exam Neurological Exam: Alert, Awake, CN II-XII Intact, Oriented x3 - Psychiatric Exam Psychiatric exam: Normal Affect, Normal Mood - Skin Skin Exam: Dry, Intact Assessment and Plan - Assessment and Plan (Free Text) Assessment: 67 yo female with E. coli bacteremia and UTI with pyelonephritis with fevers up to 101.4F. The patient was initially on Ceftriaxone but the E. coli has resistances to multiple antibiotics. E. coli was sensitive to Carbapenems and Zosyn. Must give 14 days of IV antibiotics for the pyelonephritis and bacteremia. Supportive care. Can give ertapenem IV as an outpatient as the patient appears to be tolerating meropenem. Supportive care. Prefer negative culture before discharging from the hospital. Thank you for allowing me to participate in the care of the patient, we will follow with you.
--- NOTE | 2017-11-16 13:55 | CP.PCM.DIS ---
<Jose Manuel Owens - Last Filed: 11/16/17 13:50> Provider - Provider Date of Admission: 11/03/17 23:04 Attending physician: Avery Will MD Primary care physician: Isa Saldana MD Consults: Uro: Shaka ID: Go Time Spent in preparation of Discharge (in minutes): 56 Hospital Course - Lab Results Lab Results: Micro Results 11/08/17 11:50 Blood Blood Culture - Final NO GROWTH AFTER 5 DAYS 11/08/17 11:50 Blood Gram Stain - Final TEST NOT PERFORMED 11/05/17 09:10 Blood Blood Culture - Final Escherichia Coli 11/05/17 09:10 Blood Gram Stain - Final Most Recent Lab Values WBC 4.2 10^3/ul (4.5-11.0) L 11/08/17 06:15 RBC 3.13 10^6/uL (3.5-6.1) L 11/08/17 06:15 Hgb 9.6 g/dL (12.0-16.0) L 11/08/17 06:15 Hct 28.0 % (36.0-48.0) L 11/08/17 06:15 MCV 89.5 fl (80.0-105.0) 11/08/17 06:15 MCH 30.7 pg (25.0-35.0) 11/08/17 06:15 MCHC 34.3 g/dl (31.0-37.0) 11/08/17 06:15 RDW 12.4 % (11.5-14.5) 11/08/17 06:15 Plt Count 156 10^3/uL (120.0-450.0) 11/08/17 06:15 MPV 8.8 fl (7.0-11.0) 11/08/17 06:15 Gran % 47.5 % (50.0-68.0) L 11/08/17 06:15 Lymph % (Auto) 36.6 % (22.0-35.0) H 11/08/17 06:15 Rich % (Auto) 12.1 % (1.0-6.0) H 11/08/17 06:15 Eos % (Auto) 3.3 % (1.5-5.0) 11/08/17 06:15 Baso % (Auto) 0.5 % (0.0-3.0) 11/08/17 06:15 Gran # 2.00 (1.4-6.5) 11/08/17 06:15 Lymph # (Auto) 1.5 (1.2-3.4) 11/08/17 06:15 Rich # (Auto) 0.5 (0.1-0.6) 11/08/17 06:15 Eos # (Auto) 0.1 (0.0-0.7) 11/08/17 06:15 Baso # (Auto) 0.02 K/mm3 (0.0-2.0) 11/08/17 06:15 Neutrophils % (Manual) 94 % (50.0-70.0) H 11/03/17 19:45 Band Neutrophils % 1 % (0-2) 11/03/17 19:45 Lymphocytes % (Manual) 2 % (22.0-35.0) L 11/03/17 19:45 Atypical Lymphs % 3 % (0.0-0.0) H 11/03/17 19:45 Monocytes % (Manual) 0 % (1.0-6.0) L 11/03/17 19:45 Platelet Evaluation Low (NORMAL) 11/03/17 19:45 PT 14.7 SECONDS (9.4-12.5) H 11/04/17 05:25 INR 1.27 (0.93-1.08) H 11/04/17 05:25 pO2 143 mm/Hg (30-55) H 11/03/17 19:45 VBG pH 7.51 (7.32-7.43) H 11/03/17 19:45 VBG pCO2 35.0 (40-60) L 11/03/17 19:45 VBG HCO3 27.9 mmol/l (21-28) 11/03/17 19:45 VBG Total CO2 29.0 mmol.L (22-28) H 11/03/17 19:45 VBG O2 Sat (Calc) 99.5 % (40-65) H 11/03/17 19:45 VBG Base Excess 4.9 mmol/L (0.0-2.0) H 11/03/17 19:45 VBG Potassium 3.2 mmol/L (3.6-5.2) L 11/03/17 19:45 Sodium 138.0 mmol/L (132-148) 11/03/17 19:45 Chloride 105.0 mmol/L (98-107) 11/03/17 19:45 Glucose 148 mg/dl (65-105) H 11/03/17 19:45 Lactate 1.3 mmol/L (0.7-2.1) 11/03/17 19:45 FiO2 21.0 % 11/03/17 19:45 Sodium 142 mmol/L (132-148) 11/08/17 06:15 Potassium 3.6 mmol/L (3.6-5.0) 11/08/17 06:15 Chloride 108 mmol/L (98-107) H 11/08/17 06:15 Carbon Dioxide 25 mmol/L (21-33) 11/08/17 06:15 Anion Gap 13 (10-20) 11/08/17 06:15 BUN 14 mg/dL (7-21) 11/08/17 06:15 Creatinine 0.6 mg/dl (0.7-1.2) L 11/08/17 06:15 Est GFR ( Amer) > 60 11/08/17 06:15 Est GFR (Non-Af Amer) > 60 11/08/17 06:15 POC Glucose (mg/dL) 112 mg/dL (65-110) H 11/09/17 16:29 Random Glucose 128 mg/dL (70-110) H 11/08/17 06:15 Calcium 9.4 mg/dL (8.4-10.5) 11/08/17 06:15 Iron 15 ug/dL (45-180) L 11/04/17 05:25 TIBC 280 ug/dL (265-497) 11/04/17 05:25 % Saturation 5 % (20-55) L 11/04/17 05:25 Ferritin 88.9 ng/mL 11/07/17 06:30 Total Bilirubin 0.4 mg/dL (0.2-1.3) 11/08/17 06:15 AST 20 U/L (14-36) 11/08/17 06:15 ALT 32 U/L (7-56) 11/08/17 06:15 Alkaline Phosphatase 60 U/L (38-126) 11/08/17 06:15 Total Protein 6.3 g/dL (5.8-8.3) 11/08/17 06:15 Albumin 3.2 g/dL (3.0-4.8) 11/08/17 06:15 Globulin 3.1 gm/dL 11/08/17 06:15 Albumin/Globulin Ratio 1.0 (1.1-1.8) L 11/08/17 06:15 Venous Blood Potassium 3.2 mmol/L (3.6-5.2) L 11/03/17 19:45 Urine Color Yellow (YELLOW) 11/03/17 20:10 Urine Appearance Sl cloudy (CLEAR) 11/03/17 20:10 Urine pH 7.5 (4.7-8.0) 11/03/17 20:10 Ur Specific Benson 1.020 (1.005-1.035) 11/03/17 20:10 Urine Protein 100 mg/dL (<30 mg/dL) H 11/03/17 20:10 Urine Glucose (UA) Negative mg/dL (NEGATIVE) 11/03/17 20:10 Urine Ketones Trace mg/dL (NEGATIVE) H 11/03/17 20:10 Urine Blood Moderate (NEGATIVE) H 11/03/17 20:10 Urine Nitrate Positive (NEGATIVE) H 11/03/17 20:10 Urine Bilirubin Negative (NEGATIVE) 11/03/17 20:10 Urine Urobilinogen 1.0 E.U./dL (<1 E.U./dL) H 11/03/17 20:10 Ur Leukocyte Esterase Moderate Kayla/uL (NEGATIVE) H 11/03/17 20:10 Urine RBC Tntc /hpf (0-2) 11/03/17 20:10 Urine WBC Tntc /hpf (0-6) 11/03/17 20:10 Ur Epithelial Cells 10 - 12 /hpf (0-5) 11/03/17 20:10 Urine Bacteria Many (NEG) 11/03/17 20:10 - Hospital Course Hospital Course: 67 year old female with a past medical history significant for HTN, DM2 and previous UTI who presented with left sided flank pain ongoing for two days. She was found to have UTI on UA and left hydroureteronephrosis with no signs of mechanical obstruction on CT Abdomen/Pelvis. Patient had left ureteral stent placed by Urology. Urine and blood cultures grew ESBL positive E. Coli. Contact precautions were put in place. Patient was switched from IV Rocephin to IV Merrem with ID consulted. After consultation, Merrem was replaced with Zosyn. Repeat blood cultures grew E. Coli sensitive to Ertapenem, which she was then started on. Second set of repeat blood cultures drawn and found to be negative. Patient approved for outpatient IV antibiotic therapy at [facility] for remainder of therapy as outpatient. She was also started on ISS, PRN Morphine for pain control, PRN Norvasc, and PRN Hydralazine. She had a PICC line placed for IV antibiotic administration. She discharged on 11/09/17 with instructions for outpatient infusion therapy. - Date & Time of H&P Date of H&P: 11/04/17 Time of H&P: 01:17 Discharge Exam - Head Exam Head Exam: ATRAUMATIC, NORMOCEPHALIC - Eye Exam Eye Exam: EOMI, Normal appearance Pupil Exam: NORMAL ACCOMODATION, PERRL - ENT Exam ENT Exam: Normal Exam - Neck Exam Neck exam: Full Rom, Normal Inspection - Respiratory Exam Respiratory Exam: Clear to PA & Lateral, NORMAL BREATHING PATTERN, UNREMARKABLE - Cardiovascular Exam Cardiovascular Exam: REGULAR RHYTHM - GI/Abdominal Exam GI & Abdominal Exam: Normal Bowel Sounds, Soft, Unremarkable. absent: Tenderness - Extremities Exam Extremities exam: normal inspection - Back Exam Back exam: NORMAL INSPECTION - Neurological Exam Neurological exam: Alert, CN II-XII Intact, Normal Gait, Oriented x3, Reflexes Normal - Psychiatric Exam Psychiatric exam: Normal Affect, Normal Mood - Skin Skin Exam: Dry, Intact, Normal Color, Warm Discharge Plan - Follow Up Plan Condition: GOOD Disposition: HOME/ ROUTINE Instructions: Hydronephrosis, Adult (DC), Ertapenem, Extended-Spectrum Beta Lactamase Infection, Multidrug Resistant Organisms (DC), Urinary Tract Infection in Women (DC) Additional Instructions: Please follow up with your primary care doctor within one week for post hospitalization follow up Please follow up with Dr. Matt for stent removal within one week. Contact information for his office has been provided in this paperwork. Please follow up with the [facility] at [facility] for daily injections of antibiotics for the next 13 days. Their contact information has been provided in this paperwork. Please do not remove your midline catheter. This will be removed by clinic staff after your antibiotic course has been completed. Please take over the counter Tylenol or Ibuprofen for pain control at home. This pain should improve with treatment of your infection. Please take all medications, including OTC medications, as prescribed or as instructed on the bottle If your symptoms should worsen or persist, please seek emergency medical attention. Referrals: [facility] at [facility] [Outside] Isa Saldana MD [Primary Care Provider] - Chepe Matt MD [Staff Provider] - <Avery Will - Last Filed: 11/18/17 07:26> Provider - Provider Date of Admission: 11/03/17 23:04 Attending physician: Avery Will MD Primary care physician: Isa Saldana MD Hospital Course - Lab Results Lab Results: Micro Results 11/08/17 11:50 Blood Blood Culture - Final NO GROWTH AFTER 5 DAYS 11/08/17 11:50 Blood Gram Stain - Final TEST NOT PERFORMED 11/05/17 09:10 Blood Blood Culture - Final Escherichia Coli 11/05/17 09:10 Blood Gram Stain - Final Most Recent Lab Values WBC 4.2 10^3/ul (4.5-11.0) L 11/08/17 06:15 RBC 3.13 10^6/uL (3.5-6.1) L 11/08/17 06:15 Hgb 9.6 g/dL (12.0-16.0) L 11/08/17 06:15 Hct 28.0 % (36.0-48.0) L 11/08/17 06:15 MCV 89.5 fl (80.0-105.0) 11/08/17 06:15 MCH 30.7 pg (25.0-35.0) 11/08/17 06:15 MCHC 34.3 g/dl (31.0-37.0) 11/08/17 06:15 RDW 12.4 % (11.5-14.5) 11/08/17 06:15 Plt Count 156 10^3/uL (120.0-450.0) 11/08/17 06:15 MPV 8.8 fl (7.0-11.0) 11/08/17 06:15 Gran % 47.5 % (50.0-68.0) L 11/08/17 06:15 Lymph % (Auto) 36.6 % (22.0-35.0) H 11/08/17 06:15 Rich % (Auto) 12.1 % (1.0-6.0) H 11/08/17 06:15 Eos % (Auto) 3.3 % (1.5-5.0) 11/08/17 06:15 Baso % (Auto) 0.5 % (0.0-3.0) 11/08/17 06:15 Gran # 2.00 (1.4-6.5) 11/08/17 06:15 Lymph # (Auto) 1.5 (1.2-3.4) 11/08/17 06:15 Rich # (Auto) 0.5 (0.1-0.6) 11/08/17 06:15 Eos # (Auto) 0.1 (0.0-0.7) 11/08/17 06:15 Baso # (Auto) 0.02 K/mm3 (0.0-2.0) 11/08/17 06:15 Neutrophils % (Manual) 94 % (50.0-70.0) H 11/03/17 19:45 Band Neutrophils % 1 % (0-2) 11/03/17 19:45 Lymphocytes % (Manual) 2 % (22.0-35.0) L 11/03/17 19:45 Atypical Lymphs % 3 % (0.0-0.0) H 11/03/17 19:45 Monocytes % (Manual) 0 % (1.0-6.0) L 11/03/17 19:45 Platelet Evaluation Low (NORMAL) 11/03/17 19:45 PT 14.7 SECONDS (9.4-12.5) H 11/04/17 05:25 INR 1.27 (0.93-1.08) H 11/04/17 05:25 pO2 143 mm/Hg (30-55) H 11/03/17 19:45 VBG pH 7.51 (7.32-7.43) H 11/03/17 19:45 VBG pCO2 35.0 (40-60) L 11/03/17 19:45 VBG HCO3 27.9 mmol/l (21-28) 11/03/17 19:45 VBG Total CO2 29.0 mmol.L (22-28) H 11/03/17 19:45 VBG O2 Sat (Calc) 99.5 % (40-65) H 11/03/17 19:45 VBG Base Excess 4.9 mmol/L (0.0-2.0) H 11/03/17 19:45 VBG Potassium 3.2 mmol/L (3.6-5.2) L 11/03/17 19:45 Sodium 138.0 mmol/L (132-148) 11/03/17 19:45 Chloride 105.0 mmol/L (98-107) 11/03/17 19:45 Glucose 148 mg/dl (65-105) H 11/03/17 19:45 Lactate 1.3 mmol/L (0.7-2.1) 11/03/17 19:45 FiO2 21.0 % 11/03/17 19:45 Sodium 142 mmol/L (132-148) 11/08/17 06:15 Potassium 3.6 mmol/L (3.6-5.0) 11/08/17 06:15 Chloride 108 mmol/L (98-107) H 11/08/17 06:15 Carbon Dioxide 25 mmol/L (21-33) 11/08/17 06:15 Anion Gap 13 (10-20) 11/08/17 06:15 BUN 14 mg/dL (7-21) 11/08/17 06:15 Creatinine 0.6 mg/dl (0.7-1.2) L 11/08/17 06:15 Est GFR ( Amer) > 60 11/08/17 06:15 Est GFR (Non-Af Amer) > 60 11/08/17 06:15 POC Glucose (mg/dL) 112 mg/dL (65-110) H 11/09/17 16:29 Random Glucose 128 mg/dL (70-110) H 11/08/17 06:15 Calcium 9.4 mg/dL (8.4-10.5) 11/08/17 06:15 Iron 15 ug/dL (45-180) L 11/04/17 05:25 TIBC 280 ug/dL (265-497) 11/04/17 05:25 % Saturation 5 % (20-55) L 11/04/17 05:25 Ferritin 88.9 ng/mL 11/07/17 06:30 Total Bilirubin 0.4 mg/dL (0.2-1.3) 11/08/17 06:15 AST 20 U/L (14-36) 11/08/17 06:15 ALT 32 U/L (7-56) 11/08/17 06:15 Alkaline Phosphatase 60 U/L (38-126) 11/08/17 06:15 Total Protein 6.3 g/dL (5.8-8.3) 11/08/17 06:15 Albumin 3.2 g/dL (3.0-4.8) 11/08/17 06:15 Globulin 3.1 gm/dL 11/08/17 06:15 Albumin/Globulin Ratio 1.0 (1.1-1.8) L 11/08/17 06:15 Venous Blood Potassium 3.2 mmol/L (3.6-5.2) L 11/03/17 19:45 Urine Color Yellow (YELLOW) 11/03/17 20:10 Urine Appearance Sl cloudy (CLEAR) 11/03/17 20:10 Urine pH 7.5 (4.7-8.0) 11/03/17 20:10 Ur Specific Benson 1.020 (1.005-1.035) 11/03/17 20:10 Urine Protein 100 mg/dL (<30 mg/dL) H 11/03/17 20:10 Urine Glucose (UA) Negative mg/dL (NEGATIVE) 11/03/17 20:10 Urine Ketones Trace mg/dL (NEGATIVE) H 11/03/17 20:10 Urine Blood Moderate (NEGATIVE) H 11/03/17 20:10 Urine Nitrate Positive (NEGATIVE) H 11/03/17 20:10 Urine Bilirubin Negative (NEGATIVE) 11/03/17 20:10 Urine Urobilinogen 1.0 E.U./dL (<1 E.U./dL) H 11/03/17 20:10 Ur Leukocyte Esterase Moderate Kayla/uL (NEGATIVE) H 11/03/17 20:10 Urine RBC Tntc /hpf (0-2) 11/03/17 20:10 Urine WBC Tntc /hpf (0-6) 11/03/17 20:10 Ur Epithelial Cells 10 - 12 /hpf (0-5) 11/03/17 20:10 Urine Bacteria Many (NEG) 11/03/17 20:10 Attending/Attestation - Attestation I have personally seen and examined this patient.: Yes I have fully participated in the care of the patient.: Yes I have reviewed all pertinent clinical information, including history, physical exam and plan: Yes Notes (Text): 11/18/17 07:24 Medical record note made by the resident after discussion with my direction and input after the patient was personally seen and examined by me. I have reviewed the chart and agree that the record accurately reflects by personal performance of the history, physical exam, data review, and medical decision-making, in the course for the patient. I have also personally directed the plan of care. 67 yrs old female with E. coli bacteremia and UTI with pyelonephritiss,She isSP left ureter stent for hydronephrosis. The patient was initially on Ceftriaxone but the E. coli has resistances to multiple antibiotics. E. coli was sensitive to Carbapenems and Zosyn ,will need need 14 days of IV antibiotics for the pyelonephritis and bacteremia. .She is on ertapenem IV , repeat blood cultures are negative.Echo is negative for any vegetation.Patient is afebrile. She will be discharged home and will come to clinic for her IV antibiotics, will also follow up with Urology. Patient will need weekly CBC and CMP while on IV antibiotics. Management plan was discussed in detail with patient. Education was provided.
--- NOTE | 2017-11-18 01:59 | PN ---
DATE: 11/06/2017 Please see the previously dictated consultation note, see the previously dictated operative note. See also the progress notes within the chart. SUBJECTIVE: The patient is currently resting comfortably. She feels much better from a flank standpoint. She has some stent discomfort, but is overall doing better. See also the cultures results. The patient has positive blood cultures. I have seen the urine cultures, blood cultures, labs etc. The patient, in terms of her own chief complaints, is feeling better mostly. Some discomfort from the stent. See the plans listed below. PAST MEDICAL AND SURGICAL: No other changes. REVIEW OF SYSTEMS: Everything otherwise as listed. PHYSICAL EXAMINATION: GENERAL: A well-nourished female, in no apparent distress. No real CVA tenderness. ABDOMEN: Soft. No rebound, guarding, etc. LABORATORY DATA: See the chart. Positive culture results are noted. DIAGNOSES: Urolithiasis, hematuria, sepsis, now resolving. Blood-borne sepsis with positive cultures. The diagnosis now is sepsis. It is now being treated by placing a stent. I explained this to the patient; actually we brought the ballet company artistic director computer to the bedside again. It was done before on multiple visits to spend time with the patient, explaining to the patient. She does also understand without this as well. I explained to her in further details that the timing for the removal of the stent will be in the future once she has the antibiotics in place. We will discuss the time with the Infectious Disease department. 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 We did discuss the possibility for a travel to [facility] we [facility] most of our stone work. I explained the benefits of that place. Specifically, it is a stone oriented urology oriented place. We have to verify some other factors. But I explained to the patient that either way the treatment time was coming up, but not to be done right immediately. I explained this to the patient in great detail. I have also explained at the same time the patient has a stent in place and that this stent should remain up to 3 months, but we would not encourage it nor recommend it. And that I am available to treat her as quickly as we get Infectious Disease approval for further treatment. But most likely, this will be done in the outpatient setting. Jose Matt MD
--- NOTE | 2017-11-18 02:56 | PN ---
DATE: 11/04/2017 This is an immediate postop note. See the consultation, operative note, etc., for further details. PREOPERATIVE DIAGNOSIS: Urolithiasis. POSTOPERATIVE DIAGNOSIS: Urolithiasis. PROCEDURE: Cysto stent insertion. SURGEON: BLOOD LOSS: Less than 10 mL. Patient is in the recovery room in stable condition. As mentioned previously, patient now with antibiotic therapy. Then further plans to follow. Meanwhile, we will strain the urine. We will see how the patient does. Jose Matt MD
--- NOTE | 2017-11-18 07:26 | CON ---
DATE: UROLOGY CONSULTATION History is from the chart, and also from the patient directly. We have the technology consultant, the [employer] caregiver system to assist me. REASON FOR CONSULTATION: Severe renal colic and a kidney stone. See further plans listed below. HISTORY OF PRESENT ILLNESS: The patient presents with severe pain. She is a 67-year-old lady. She is also septic. She has hydronephrosis, renal colic, obstructing stone, elevation of white count. Culture is pending. See the Urology plans listed below. PAST MEDICAL AND SURGICAL HISTORY: Listed in the chart. No history of NC, CVA. SOCIAL HISTORY: She lives here in [facility] now. She actually speaks [place] fairly well, although we decided after talking to the patient, just to explain in further details what we are planning, to use technology consultant throughout the whole time. MEDICATIONS: Listed in the chart. ALLERGIES: LISTED IN THE CHART. PHYSICAL EXAMINATION: GENERAL: A well-nourished female. She looks in a moderate amount of distress. She is resting relatively comfortably on the gurney. VITAL SIGNS: Within normal limits. ABDOMEN: Overall soft. There is mild amount of tenderness noted in the flank area. PELVIC: Deferred until cystoscopy. (Although I do want to mention now that patient raised concern with the technology consultant that she has "dropping of her bladder.") Then when we did a pelvic exam during the cystoscopy - see the plan from the operative note - she in fact does have a moderate cystocele. CT scan noted. Labs noted. DIAGNOSES: Urolithiasis, hematuria, hydronephrosis, severe renal colic, sepsis, leukocytosis, abnormal results, and distal obstructing ureteral stone. ASSESSMENT AND PLAN: In summary, at this point I discussed with the patient options. I discussed the importance of the impending sepsis. Again, cultures are pending, but I explained to the patient the risks for sepsis and that we would not recommend observation. I also explained that with the patient is septic, the goal is just to drain the kidney. We are going to put a stent in as quickly as possible. We are not going to be treating the stone right now, given its location, place, and size, especially given the fact that she is relatively potentially septic. In terms of her bladder "dropping," we will make further recommendations and plans. Again, see the body of the operative note. We will address this, not necessarily during this hospital stay and definitely not during the sepsis. But further plans will follow. PLAN: So, the plan for now is patient is to go to the OR for stent insertion, and then once she is non-septic and being treated, we will then make arrangements for outpatient followup and ureteroscopy, laser lithotripsy verus the possibility for shockwave lithotripsy depending on the patient's clinical course and overall general condition. So, the plan for now is: 1. Antibiotics. 2. OR. And then further plans to follow. ADDENDUM: See the body of the operative report for further details. Thank you for the Urology consultation. Jose Matt MD
--- NOTE | 2017-11-18 07:40 | OP ---
PROCEDURE DATE: 11/04/2017 PREOPERATIVE DIAGNOSES: Urolithiasis, hematuria, severe renal colic, hydronephrosis, sepsis and stone disease. POSTOPERATIVE DIAGNOSES: Urolithiasis, hematuria, severe renal colic, hydronephrosis, sepsis and stone disease. PROCEDURE: Examination under anesthesia, cystoscopy, retrograde pyelogram, and insertion of double-J stent. There were no on the left side. COMPLICATIONS: There were no complications. BLOOD LOSS: Less than 10 mL. FINDINGS: As follows; 1. The patient has a moderate cystocele. 2. Patient has hydronephrosis. 3. Patient has stone disease. 4. No bladder lesions are otherwise noted. INDICATIONS: See history and physical for further details, and the consultation. The patient is here now for the above procedure. I want to be very clear, we discussed with patient risks, benefits, and treatment alternatives with a specific stem maker who provided translation. All questions were answered. I spent a long time getting consent and explaining patient our plans. Specifically explaining sepsis and the plan and recommendations that we will just drain the kidney. We are not planning to remove the stones. This was very clear to the patient. I also explained to the patient that most likely this will not be done during this hospital stay. She was to return either here or bring her to [place], to a place called [facility]. I explained to the patient with picture and careful detail about shock wave lithotripsy and urethroscopy and laser lithotripsy after all those options; but the first thing we need to do is to drain the kidney. After explaining all this to the patient, she is now here for the above listed procedure. I just want to also mention that the procedure went without complication, we were able to put the stent in nice and easily and drain the kidney. FINDINGS: Other than the stone, no other specific abnormality. Patient has a moderate cystocele as she suspected. There are no pelvic or rectal masses. DESCRIPTION OF PROCEDURE: After obtaining informed consent, the patient was placed on the table. Routine monitors were placed. Timeout was called to confirm the patient and positioning. Antibiotics were already used. We introduced the cystoscope via the urethra. We identified the ureteral orifice. Retrograde pyelogram was actually a little bit difficult, given her cystocele and she had a push back up on the bladder, to identify normal anatomy; but once we did this, we were able to easily manipulate the ureter and get a wire up to the kidney for retrograde pyelogram, submitted films. But we got the wire in fairly quickly and placed the double-J stent in. Again, we were trying to work as efficiently as possible given the fact of this impending sepsis. Overall, the patient tolerated the procedure without complications. Jose Matt MD
--- NOTE | 2017-11-18 08:18 | PN ---
DATE: 11/10/2017 See the previously dictated notes. This is for thorough documentation on the chart. See the previously dictated history and physical and consultation notes. This is a note for thoroughness. I am reviewing her medical records. I had spoken with patient Dmitriy Denson. We had placed the stent on 11/04/2017 and then I saw the patient while she was in the hospital. She subsequently had been home. On 11/10/2017, I spoke to the only number that I have in the contact. The number that is left in the chart is not available for me to speak with. This is just again to put a further note in the chart on 11/10/2017. Today's date is 11/17/2017, but on 11/10/2017, I spoke to the family friend at [phone] and requested that Ms. Denson come into the office to discuss treatment. I invited to the office. I gave my address etc. As of this dictation on 11/17/2017, I have again reached out to the same number listed above and is yet to hear back from the patient, but they are very well aware of the stent and location, and I am just waiting for followup. This is for the thoroughness of the chart. Jose Matt MD
== END 2017-11-09 19:41 | disposition home or self-care (01) | DRG 569 ==
LOC: ED 18:05 → EDBD 18:05 → ERH 23:04 → 3RNO 11-04 05:47
PROVIDERS: ADMIT Internal Medicine; ATTEND Internal Medicine
PROC: BT1FZZZ Fluoroscopy of Left Kidney, Ureter and Bladder (ICD-10-PCS; 2017-11-04)
PROC: 0T778DZ Dilation of Left Ureter with Intraluminal Device, Via Natural or Artificial Opening Endoscopic (ICD-10-PCS; principal; 2017-11-04 14:00)
DX: N13.6 Pyonephrosis (principal); R78.81 Bacteremia; E11.9 Type 2 diabetes mellitus without complications; I10 Essential (primary) hypertension; B96.20 Unspecified Escherichia coli [E. coli] as the cause of diseases classified elsewhere; D64.9 Anemia, unspecified; R40.2412 Glasgow coma scale score 13-15, at arrival to emergency department; Z87.440 Personal history of urinary (tract) infections; Z87.442 Personal history of urinary calculi; N20.2 Calculus of kidney with calculus of ureter; N81.10 Cystocele, unspecified; Z16.24 Resistance to multiple antibiotics